=== PATIENT | male | born 1955 | race Hispanic/Latino ===

== ENCOUNTER 2019-12-06 08:00 | Inpatient (IN) | payer OTHER ==
[2019-12-04 10:35] LABS: Hematocrit 38.7 % (35.5-45.6); Hemoglobin 13.4 gm/dl (11.8-15.2); Mean Corpuscular HGB Conc 35 % (32-34); Mean Corpuscular Volume 93 fl (84-94); Platelet Count 374 K/mm3 (140-440); Red Blood Count 4.15 M/mm3 (3.65-5.03); Red Cell Distribution Width 13.4 % (13.2-15.2)
[2019-12-04 10:50] LABS: BUN/Creatinine Ratio 7; Blood Urea Nitrogen 5 mg/dL (9-20); Calcium 9.4 mg/dL (8.4-10.2); Hemolysis Index 30
--- NOTE | 2019-12-04 10:54 | Anesthesia Consultation ---
Anesthesia Consult and Med Hx Date of service: 12/06/19 - Airway Anesthetic Teeth Evaluation: Dentures ROM Head & Neck: Adequate Mental/Hyoid Distance: Adequate Mallampati Class: Class II Intubation Access Assessment: Probably Good - Pulmonary Exam CTA: Yes - Cardiac Exam Cardiac Exam: RRR - Pre-Operative Health Status ASA Pre-Surgery Classification: ASA2 Proposed Anesthetic Plan: General - Pulmonary Hx Smoking: Yes (quit 03/2019) Hx Respiratory Symptoms: No - Cardiovascular System Hx Hypertension: No Hx Heart Attack/AMI: No Hx Percutaneous Transluminal Coronary Angioplasty (PTCA): No Hx Cardia Arrhythmia: No Hx Peripheral Vascular Disease: Yes (w/ B/l LE neuropathy) - Central Nervous System CVA: No - Gastrointestinal Hx Gastroesophageal Reflux Disease: Yes - Endocrine Hx Renal Disease: No Hx Liver Disease: No Hx Insulin Dependent Diabetes: No Hx Non-Insulin Dependent Diabetes: No Hx Thyroid Disease: No - Hematic Hx Anemia: No - Other Systems Hx Obesity: No - Additional Comments Anesthesia Medical History Comments: No prior GA or FHx anesthetic complications. Cardiology evaluation on chart. TTE 11/23/2019: EF 55-60%, no valvulopathy. EKG 11/23/2019: NSR
--- NOTE | 2019-12-06 07:32 | Anesthesia Day of Surgery ---
Anesthesia Day of Surgery - Day of Surgery Patient Examined: Yes Patient H&P Reviewed: Yes Patient is NPO: Yes
[~2019-12-06 08:00] MED LIST: BACTERIOSTATIC SODIUM CHLORIDE 0.9% 30 ML VIAL INFILTRATI ONE; GABAPENTIN 300 MG CAP PO NR; GELATIN SPONGE SIZE 100 TP ONE; HEPARIN 10,000 UNITS/10 ML VIAL ONE; HYDROmorphone 1 MG/1 ML INJ ONE; LACTATED RINGERS 1,000 ML IV SCH; LIDOCAINE (1%) 10 MG/1 ML VIAL 20 ML MDV ONE; LIDOCAINE MPF (2%) 20 MG/1 ML VIAL 5 ML ONE; MIDAZOLAM 2 MG/2 ML INJ IV NR; PROTAMINE SULFATE 50 MG/5 ML INJ ONE; ROCURONIUM 50 MG/5 ML INJ IV ONE; SODIUM CHLORIDE 0.9% 500 ML 500 ML ONE; SUCCINYLCHOLINE CHLORIDE 200 MG/10 ML INJ MDV ONE; THROMBIN (RECOMBINANT) 5,000 UNIT VIAL TP ONE; ceFAZolin/Water 2 GM/20 ML 2 GM/20 ML SYRINGE IV NR; propofoL 200 MG/20 ML VIAL IV ONE
[2019-12-06] MEDS ORDERED: PHENYLEPHRINE/NS 1,000 MCG/10 ML SYRINGE (OR USE) IV ONE (08:44)
[2019-12-06] MEDS ORDERED: HEPARIN 10,000 UNITS/10 ML VIAL IR ONE (09:16)
[2019-12-06] MEDS ORDERED: SODIUM CHLORIDE 0.9% 500 ML IVPB IRRIGATION ONE (09:17)
[2019-12-06] MEDS ORDERED: THROMBIN (RECOMBINANT) 5,000 UNIT VIAL TP ONE (09:18)
[2019-12-06] MEDS ORDERED: SODIUM CHLORIDE 0.9% IRR 1,500 ML BOTTLE IR ONE (09:18)
[2019-12-06] MEDS ORDERED: PHENYLEPHRINE 10 MG/1 ML INJ SDV ONE (09:20)
[2019-12-06] MEDS ORDERED: SODIUM CHLORIDE 0.9% 100 ML ONE (09:20)
[2019-12-06] MEDS ORDERED: HEPARIN 10,000 UNITS/10 ML VIAL ONE (09:27)
[2019-12-06] MEDS ORDERED: NEOSTIGMINE 10MG/10 ML INJ MDV ONE (11:12)
[2019-12-06] MEDS ORDERED: ONDANSETRON 4 MG/2 ML INJ ONE (11:12)
[2019-12-06] MEDS ORDERED: GLYCOPYRROLATE 0.4 MG/2 ML INJ ONE (11:12)
[2019-12-06] MEDS ORDERED: PROTAMINE SULFATE 50 MG/5 ML INJ IV ONE (11:25)
[2019-12-06] MEDS ORDERED: HYDROmorphone 1 MG/1 ML INJ IV PRN (11:29)
[2019-12-06] MEDS ORDERED: ONDANSETRON 4 MG/2 ML INJ IV PRN (11:29)
--- NOTE | 2019-12-06 11:29 | Post Operative Note ---
Date of procedure: 12/06/19 Pre-op diagnosis: Severe Right-sided Carotid Stenosis Post-op diagnosis: same Procedure: Right Carotid Endarterectomy and Patch Angioplasty Anesthesia: GETA Surgeon: JORDYN CASTELAN Estimated blood loss: other (50ml) Condition: stable Disposition: PACU
[2019-12-06] MEDS ORDERED: SODIUM CHLORIDE 0.9% 1000 ML 1,000 ML IV SCH (11:30)
[2019-12-06] MEDS ORDERED: HYDROmorphone 1 MG/1 ML INJ ONE (11:35)
[2019-12-06] MEDS: HYDROmorphone 1 MG/1 ML INJ IV PRN ×4 (11:53→13:58)
[2019-12-06] MEDS ORDERED: DOPamine/D5W 800 MG/250 ML 800 MG/250 ML BAG IV SCH (12:00)
[2019-12-06] MEDS ORDERED: NITROPRUSSIDE 50 MG in DEXTROSE 5% IN WATER 248 ML IV SCH (12:00)
--- NOTE | 2019-12-06 12:42 | Operative Report ---
STAFF SURGEON: Dr. Reji Ramos. PREOPERATIVE DIAGNOSIS: Severe right-sided carotid stenosis. POSTOPERATIVE DIAGNOSIS: Severe right-sided carotid stenosis. PROCEDURE PERFORMED: Right carotid endarterectomy and patch angioplasty with bovine pericardium. COMPLICATIONS: None. ESTIMATED BLOOD LOSS: 50 mL. ANESTHESIA: General. INDICATIONS FOR PROCEDURE: This is a 64-year-old gentleman with multiple medical problems including a significant peripheral vascular disease, who presented to our clinic with severe bilateral lower extremity arterial insufficiency. However, on workup to address his legs, we have an incidental finding of severe stenosis of his right carotid artery. Before addressing any of the other patient's issues, it was felt necessary to address his carotid stenosis. After explaining all the risks, benefits and alternatives of procedure, he expressed understanding and wished to proceed. DESCRIPTION OF PROCEDURE: After appropriate consent was obtained, the patient was brought back to the operating room and placed on the operating table in supine position. The patient was given appropriate medication for general anesthesia, was intubated without difficulty. The right neck and chest were prepped and draped in the usual sterile fashion with ChloraPrep. Appropriate preoperative antibiotics were administered and appropriate time-out performed indicating correct patient, procedure, and site of procedure. We then began the operation by making a longitudinal incision along the anterior border of the sternocleidomastoid muscle. This was carried through the subcutaneous tissue and platysma muscle with electrocautery and blunt dissection. Dissection was continued down on to the internal jugular vein. The facial vein was identified and ligated x 2 with a 2-0 silk suture. The IJ was then able to be retracted posteriorly and dissection was then continued onto the common carotid artery. This was mobilized circumferentially and controlled with umbilical tape and Dylan. Dissection was then continued distally onto the bifurcation and proceeded to expose the internal, external, and superior thyroid arteries, which were all controlled with vessel loops. The vagus and hypoglossal nerve were identified and protected throughout the case. The patient was then given unfractionated heparin intravenously and ACTs were obtained throughout the remainder of the case for adequate anticoagulation. After appropriate timeout elapsed, the vascular clamp was then placed first on the internal carotid artery, then common and external carotid arteries and the superior thyroid vessel was placed on adequate tension. An 11 blade was then used to create an arteriotomy on the common carotid artery, which was then extended onto the internal. After releasing the clamp on the internal carotid artery, there was sufficient enough backbleeding that too was felt not necessary to shunt. The clamp was then placed, then proceeded to perform our endarterectomy with a [place] elevator, started on the common carotid artery, extended on to the external and proceeded to perform eversion endarterectomy of the external and then continued our endarterectomy onto the internal carotid artery, which feathered out nicely. We then proceeded to remove any loose debris with fine mosquito and then the distal flap was then tacked down with interrupted 7-0 Prolene suture. Once complete and satisfied with our endarterectomized surface, we then proceeded to perform a patch angioplasty with a running 6-0 Prolene suture suturing down a bovine pericardial patch. Prior to completion of the anastomosis, we back flushed from the internal and external carotid artery and then forward flushed from the common. This was then flushed with heparinized saline. The anastomosis was then completed. The external carotid artery clamp was removed and then the common carotid artery was then removed. A clamp was then removed for several beats and then the internal carotid artery clamp was removed. We then brought a Doppler on the field, which demonstrated adequate signals in the internal, external, and common carotid arteries. With this, the patient was then given protamine for heparinization reversal. We looked to obtain further hemostasis along the suture line with hemostatic agents. Once we were satisfied with hemostasis, then proceeded to close the wound by approximating the sternocleidomastoid muscle with interrupted 2-0 PDS and the platysma muscle was approximated with a running 3-0 PDS and then the skin was approximated with running 4-0 Monocryl with Dermabond dressing. The patient tolerated the procedure well, emerged from the general anesthesia, was extubated in the operating room, neurologically intact and was sent to recovery in stable condition. All the sponges, instrument and needle counts were correct at completion of the operation. JOB# [id number] DESTINEE/MARK
[2019-12-06] MEDS: fentaNYL 100 MCG/2 ML INJ IV PRN ×2 (16:23→17:05)
--- NOTE | 2019-12-06 18:21 | Post Anesthesia Evaluation ---
- Post Anesthesia Evaluation Patient Participated: Yes Airway Patent: Yes Stable Respiratory Function: Yes Nausea/Vomiting: No Temp > 96.8F: Yes Pain Manageable: Yes Adequeate Hydration: Yes Anesthesia Complications: No Other Comments: Neurologically intact. Briefly on low dose pressors but off ~2hrs prior to transfer to telemetry unit.
[2019-12-06] MEDS: HEPARIN 5,000 UNIT/1 ML VIAL SUB-Q SCH ×2 (20:31→22:37)
[2019-12-06] MEDS: ceFAZolin/NS 1 GM/50 ML 1 GM/50 ML BAG IV SCH ×2 (20:31→22:37)
[2019-12-06] MEDS: DOCUSATE SODIUM 100 MG CAP PO SCH (22:37)
[2019-12-06] MEDS: oxyCODONE /ACETAMINOPHEN 5-325MG TAB PO PRN (23:41)
[2019-12-07] MEDS: HEPARIN 5,000 UNIT/1 ML VIAL SUB-Q SCH ×3 (04:56→14:35)
[2019-12-07] MEDS: ceFAZolin/NS 1 GM/50 ML 1 GM/50 ML BAG IV SCH (04:56)
[2019-12-07] MEDS: oxyCODONE /ACETAMINOPHEN 5-325MG TAB PO PRN ×2 (04:57→14:35)
[2019-12-07] MEDS: DOCUSATE SODIUM 100 MG CAP PO SCH (09:20)
[2019-12-07] MEDS ORDERED: TAMSULOSIN 0.4 MG CAP PO SCH (10:00)
[2019-12-07] MEDS ORDERED: ASPIRIN EC 81 MG TAB PO SCH (10:00)
--- NOTE | 2019-12-07 11:03 | Progress Note ---
Subjective Date of service: 12/07/19 Interval history: s/p Right CEA patient doing well right neck incision c/d/i no hematoma ladle cleaner II-XII intact, motor/sensory grossly intact ok to d/c home today Objective - Constitutional Vitals: Vital Signs - 12hr 12/07/19 12/07/19 12/07/19 00:19 04:28 04:29 Temperature 99.2 F 98.4 F Pulse Rate 67 65 59 L Respiratory 16 16 Rate Blood Pressure 109/54 113/53 O2 Sat by Pulse 92 88 Oximetry 12/07/19 12/07/19 08:37 08:57 Temperature 97.7 F Pulse Rate 60 Respiratory 18 Rate Blood Pressure 113/52 O2 Sat by Pulse 90 90 Oximetry - Labs CBC & Chem 7: 12/04/19 09:45 12/04/19 09:45 Medications & Allergies - Medications Allergies/Adverse Reactions: Allergies No Known Allergies Allergy (Unverified 11/29/19 16:03) Home Medications: Home Medications Medication Instructions Recorded Confirmed Last Taken Type Aspirin [Adult Aspirin] 81 mg PO DAILY 11/29/19 12/06/19 12/04/19 History Active Medications: Generic Name Dose Route Start Last Admin Trade Name Freq PRN Reason Stop Dose Admin Aspirin 81 mg 12/07/19 10:00 12/07/19 09:20 Halfprin Ec PO 81 mg DAILY WILIAM Administration Atorvastatin Calcium 40 mg 12/06/19 22:00 12/06/19 22:37 Lipitor PO 40 mg QHS WILIAM Administration Docusate Sodium 100 mg 12/06/19 22:00 12/07/19 09:20 Colace PO 100 mg BID WILIAM Administration Heparin Sodium (Porcine) 5,000 unit 12/06/19 14:00 12/07/19 05:02 Heparin SUB-Q Not Given Q8HR WILIAM Hydromorphone HCl 0.25 mg 12/06/19 11:29 12/06/19 19:58 Dilaudid IV 0.25 mg Q3H PRN Administration Pain, Moderate (4-6) Sodium Chloride 1,000 mls @ 50 mls/hr 12/06/19 11:30 12/06/19 22:37 Nacl 0.9% 1000 Ml IV 50 mls/hr DIRECT WILIAM Administration Dopamine HCl/Dextrose 800 mg in 250 mls @ 2.551 mls/hr 12/06/19 12:00 12/06/19 15:55 Intropin Drip 800 Mg/D5w 250 Ml IV 0 mcg/kg/min TITR WILIAM 0 mls/hr Titration Protocol 2 MCG/KG/MIN Sodium Nitroprusside 50 mg/ 250 mls @ 5.103 mls/hr 12/06/19 12:00 Dextrose IV TITR WILIAM Protocol 0.25 MCG/KG/MIN Ondansetron HCl 4 mg 12/06/19 11:29 12/06/19 19:59 Zofran IV 4 mg Q8H PRN Administration Nausea And Vomiting Oxycodone/Acetaminophen 1 tab 12/06/19 11:29 12/07/19 04:57 Percocet 5/325 PO 1 tab Q4H PRN Administration Pain, Moderate (4-6) Tamsulosin HCl 0.4 mg 12/07/19 10:00 12/07/19 09:20 Flomax PO 0.4 mg QDAY WILIAM Administration
--- NOTE | 2019-12-07 11:07 | Short Stay Summary ---
Short Stay Documentation Date of service: 12/07/19 - History H&P: obtained from office Past Medical History: CAD, PVD - Allergies and Medications Current Medications: Allergies No Known Allergies Allergy (Unverified 11/29/19 16:03) Home Medications Medication Instructions Recorded Confirmed Last Taken Type Aspirin [Adult Aspirin] 81 mg PO DAILY 11/29/19 12/06/19 12/04/19 History Active Medications Aspirin (Halfprin Ec) 81 mg PO DAILY [facility] Last Admin: 12/07/19 09:20 Dose: 81 mg Documented by: Atorvastatin Calcium (Lipitor) 40 mg PO QHS [facility] Last Admin: 12/06/19 22:37 Dose: 40 mg Documented by: Docusate Sodium (Colace) 100 mg PO BID [facility] Last Admin: 12/07/19 09:20 Dose: 100 mg Documented by: Heparin Sodium (Porcine) (Heparin) 5,000 unit SUB-Q Q8HR [facility] Last Admin: 12/07/19 05:02 Dose: Not Given Documented by: Hydromorphone HCl (Dilaudid) 0.25 mg IV Q3H PRN PRN Reason: Pain, Moderate (4-6) Last Admin: 12/06/19 19:58 Dose: 0.25 mg Documented by: Sodium Chloride (Nacl 0.9% 1000 Ml) 1,000 mls @ 50 mls/hr IV DIRECT [facility] Last Admin: 12/06/19 22:37 Dose: 50 mls/hr Documented by: Dopamine HCl/Dextrose (Intropin Drip 800 Mg/D5w 250 Ml) 800 mg in 250 mls @ 2.551 mls/hr IV TITR WILIAM; Protocol Last Titration: 12/06/19 15:55 Dose: 0 mcg/kg/min, 0 mls/hr Documented by: Sodium Nitroprusside 50 mg/ (Dextrose) 250 mls @ 5.103 mls/hr IV TITR WILIAM; Protocol Ondansetron HCl (Zofran) 4 mg IV Q8H PRN PRN Reason: Nausea And Vomiting Last Admin: 12/06/19 19:59 Dose: 4 mg Documented by: Oxycodone/Acetaminophen (Percocet 5/325) 1 tab PO Q4H PRN PRN Reason: Pain, Moderate (4-6) Last Admin: 12/07/19 04:57 Dose: 1 tab Documented by: Tamsulosin HCl (Flomax) 0.4 mg PO QDAY [facility]ILIAM Last Admin: 12/07/19 09:20 Dose: 0.4 mg Documented by: - Physical exam General appearance: no acute distress HEENT: Atraumatic Lungs: Normal air movement Extremities: no ischemia Neurological: Normal speech, Strength at 5/5 X4 ext, Sensation intact, Cranial nerves 3-12 NL - Hospital course Hospital course: the patient was taken to the operating room and had a right carotid endarterectomy performed. please refer to the operative note concerning details of the procedure. the patient tolerated the procedure well and was sent to the floor for observation. the patient post-op course was unremarkable. he remained neurologically intact and was tolerating a diet at the time of discharge. he was discharged home in stable condition. - Disposition Condition at discharge: Stable Disposition: DC-01 TO HOME OR SELFCARE - Discharge Diagnoses (1) Carotid stenosis, right Status: Acute Short Stay Discharge Plan Follow up with: JORDYN CASTELAN MD [Primary Care Provider] - 7 Days
[2019-12-07 14:41] VITALS: BP 139/58
== END 2019-12-07 16:09 | disposition home or self-care (01) | DRG 27 ==
LOC: 2B-ACE 12:17 → 4A 12:21
PROVIDERS: ADMIT Surgery Vascular Surgery; ATTEND Surgery Vascular Surgery
PROC: 03CH3ZZ Extirpation of Matter from Right Common Carotid Artery, Percutaneous Approach (ICD-10-PCS; principal; 2019-12-06)
PROC: 03UH3KZ Supplement Right Common Carotid Artery with Nonautologous Tissue Substitute, Percutaneous Approach (ICD-10-PCS; 2019-12-06)
DX: I65.21 Occlusion and stenosis of right carotid artery (principal); Z79.899 Other long term (current) drug therapy; Z79.82 Long term (current) use of aspirin; I72.3 Aneurysm of iliac artery; D29.1 Benign neoplasm of prostate
CPT/HCPCS: 36415; 36620; 80048; 85027; 85347; 88304; 88311; 94760; 99406; G0378; A4649; A9270-GY; C1768; J0330; J0690; J1170; J1265; J1644; J2250; J2370; J2405; J2704; J2710; J2720; J3010; J7030; J7040; J7120; U0003

== ENCOUNTER 2020-01-03 09:00 | Inpatient (IN) | payer OTHER ==
[2020-01-01 14:29] LABS: Hematocrit 34.1 % (35.5-45.6); Hemoglobin 11.9 gm/dl (11.8-15.2); Mean Corpuscular HGB Conc 35 % (32-34); Mean Corpuscular Volume 93 fl (84-94); Platelet Count 521 K/mm3 (140-440); Red Blood Count 3.67 M/mm3 (3.65-5.03); Red Cell Distribution Width 13.3 % (13.2-15.2)
[2020-01-01 14:48] LABS: BUN/Creatinine Ratio 7; Blood Urea Nitrogen 5 mg/dL (9-20); Calcium 9.4 mg/dL (8.4-10.2); Hemolysis Index 0
--- NOTE | 2020-01-03 07:39 | Anesthesia Consultation ---
Anesthesia Consult and Med Hx Date of service: 01/03/20 - Airway Anesthetic Teeth Evaluation: Edentulous ROM Head & Neck: Adequate Mental/Hyoid Distance: Adequate Mallampati Class: Class III Intubation Access Assessment: Probably Good (previous easy intubation with MAC 3) - Pre-Operative Health Status ASA Pre-Surgery Classification: ASA3 Proposed Anesthetic Plan: General - Pulmonary Hx Smoking: Yes (quit 03/2019) Hx Respiratory Symptoms: No - Cardiovascular System Hx Hypertension: No Hx Heart Attack/AMI: No Hx Percutaneous Transluminal Coronary Angioplasty (PTCA): No Hx Cardia Arrhythmia: No Hx Peripheral Vascular Disease: Yes - Central Nervous System CVA: No (carotid a. stenosis s/p CEA 11/2019) Hx Psychiatric Problems: No - Gastrointestinal Hx Gastroesophageal Reflux Disease: Yes - Endocrine Hx Renal Disease: No Hx Liver Disease: No Hx Insulin Dependent Diabetes: No Hx Non-Insulin Dependent Diabetes: No Hx Thyroid Disease: No - Hematic Hx Anemia: Yes - Other Systems Hx Obesity: No - Additional Comments Anesthesia Medical History Comments: No hx anesthetic complications.
--- NOTE | 2020-01-03 07:40 | Anesthesia Day of Surgery ---
Anesthesia Day of Surgery - Day of Surgery Patient Examined: Yes Patient H&P Reviewed: Yes Patient is NPO: Yes
--- NOTE | 2020-01-03 07:52 | History and Physical Report ---
History of Present Illness Date of examination: 01/03/20 Chief complaint: Left Lower Extremity Pain History of present illness: 64-year-old gentleman with known peripheral vascular disease presents with a history of worsening bilateral leg pain with ambulation over the past 4 to 5 years. Patient states recently over the past several months his symptoms have progressed to the point rest pain mainly at night while laying flat. Patient is only able to ambulate a few steps without significant symptoms. The patient also states that he has issues with numbness in both feet. The patient up until this point has been managed conservatively with very little relief. The patient has noted injury to the left third toe that has been slow to heal. Patient presents today for attempted intervention for revascularization. The patient denies any recent changes since last evaluated. Past History Past Medical History: hypertension, hyperlipidemia, PVD Social history: smoking Medications and Allergies Allergies Allergy/AdvReac Type Severity Reaction Status Date / Time tramadol Allergy N&V Verified 12/31/19 12:10 Home Medications Medication Instructions Recorded Confirmed Last Taken Type Aspirin [Adult Aspirin] 81 mg PO DAILY 11/29/19 01/03/20 01/02/20 History oxyCODONE /ACETAMINOPHEN [Percocet 1 tab PO Q6HR PRN #24 tablet 12/07/19 01/03/20 12/20/19 Rx 5/325 mg] Active Meds: Active Medications Celecoxib (Celebrex) 200 mg PO PREOP NR Stop: 01/03/20 23:59 Last Admin: 01/03/20 07:06 Dose: 200 mg Documented by: Gabapentin (Gabapentin) 300 mg PO PREOP NR Stop: 01/03/20 23:59 Last Admin: 01/03/20 07:06 Dose: 300 mg Documented by: Hydromorphone HCl (Dilaudid) 0.5 mg IV Q10MIN PRN PRN Reason: Pain , Severe (7-10) Cefazolin Sodium (Ancef/Sterile Water 2 Gm/20 Ml) 2 gm in 20 mls @ 80 mls/hr IV PREOP NR; Protocol Stop: 01/03/20 23:00 Lactated Ringer's (Lactated Ringers) 1,000 mls @ 100 mls/hr IV DIRECT WILIAM Stop: 01/03/20 23:59 Last Admin: 01/03/20 06:55 Dose: 100 mls/hr Documented by: Magnesium Oxide (Mag-Ox) 400 mg PO PREOP WILIAM Stop: 01/03/20 23:59 Last Admin: 01/03/20 07:06 Dose: 400 mg Documented by: Midazolam HCl (Versed) 2 mg IV PREOP NR Stop: 01/03/20 23:59 Last Admin: 01/03/20 07:33 Dose: 2 mg Documented by: Review of Systems All systems: negative Exam - Constitutional Vitals: Temp Pulse Resp BP Pulse Ox 98.2 F 77 20 130/67 100 01/01/20 14:00 01/01/20 14:00 01/01/20 14:00 01/01/20 14:00 01/01/20 14:00 General appearance: Present: no acute distress - Cardiovascular Rhythm: regular - Extremities Extremities: normal temperature, Full ROM Peripheral Pulses: abnormal - Musculoskeletal Musculoskeletal: strength equal bilaterally - Neurologic Neurologic: CNII-XII intact, moves all extremities Results - Labs CBC & Chem 7: 01/01/20 14:00 01/01/20 14:00 Assessment and Plan plan for left femoral remote endarterectomy with angiogram and possible intervention, possible femoral to distal bypass
[~2020-01-03 09:00] MED LIST changes: +CELECOXIB 200 MG CAP PO NR; -LIDOCAINE (1%) 10 MG/1 ML VIAL 20 ML MDV ONE; +LIDOCAINE 1%/EPINEPHRINE 1:100,000 VIAL (20 ML) INFILTRATI ONE; +MAGNESIUM OXIDE 400 MG TAB PO SCH; +PHENYLEPHRINE 10 MG/1 ML INJ SDV ONE; -PROTAMINE SULFATE 50 MG/5 ML INJ ONE; +SODIUM CHLORIDE 0.9% 100 ML ONE; +ePHEDrine SULFATE 50 MG/1 ML INJ ONE
[2020-01-03] MEDS ORDERED: SODIUM CHLORIDE 0.9% 1000 ML 1,000 ML ONE (09:34)
[2020-01-03] MEDS ORDERED: LACTATED RINGERS 1,000 ML ONE (09:34)
[2020-01-03] MEDS ORDERED: HEPARIN 10,000 UNITS/10 ML VIAL IV ONE (10:31)
[2020-01-03] MEDS ORDERED: SODIUM CHLORIDE 0.9% 500 ML IVPB IV ONE (10:32)
[2020-01-03] MEDS ORDERED: THROMBIN (RECOMBINANT) 5,000 UNIT VIAL TP ONE (10:44)
[2020-01-03] MEDS ORDERED: LIDOCAINE 1%/EPINEPHRINE 1:100,000 VIAL (20 ML) IJ ONE (10:44)
[2020-01-03] MEDS ORDERED: HEPARIN 10,000 UNITS/10 ML VIAL ONE ×2 (11:11→12:32)
[2020-01-03] MEDS ORDERED: ROCURONIUM 50 MG/5 ML INJ IV ONE (12:13)
[2020-01-03] MEDS ORDERED: SODIUM CHLORIDE 0.9% 500 ML 500 ML ONE (12:33)
[2020-01-03] MEDS ORDERED: ONDANSETRON 4 MG/2 ML INJ ONE (15:21)
[2020-01-03] MEDS: HYDROmorphone 1 MG/1 ML INJ IV PRN ×3 (15:45→16:33)
[2020-01-03] MEDS ORDERED: NALOXONE 0.4 MG/1 ML INJ IV PRN (16:18)
[2020-01-03] MEDS ORDERED: ONDANSETRON 4 MG/2 ML INJ IV PRN (16:18)
[2020-01-03] MEDS ORDERED: CLOPIDOGREL 300 MG TAB PO ONE (16:24)
[2020-01-03] MEDS ORDERED: SODIUM CHLORIDE 0.9% 1000 ML 1,000 ML IV SCH (16:30)
--- NOTE | 2020-01-03 17:48 | Post Anesthesia Evaluation ---
- Post Anesthesia Evaluation Patient Participated: Yes Airway Patent: Yes Stable Respiratory Function: Yes Nausea/Vomiting: No Temp > 96.8F: Yes Pain Manageable: Yes Adequeate Hydration: Yes Anesthesia Complications: No
--- NOTE | 2020-01-03 18:59 | Post Operative Note ---
Date of procedure: 01/03/20 Pre-op diagnosis: Left Lower Extremity Critical Limb Ischemia Post-op diagnosis: same Findings: Initial angiogram demonstrated flush patent left common femoral and profunda femoral arteries with flush occlusion of the SFA and reconstitution of the distal SFA, 70% stenosis of the P2 segment of the popliteal artery, TP trunk patent, BOAT PILOT of the origin of the AT, origin of the peroneal and PT patent with 1 vessel runoff to the foot via the PT with intact plantar arch. Procedure: 1. Left Common Femoral Antegrade Access 2. Left Lower Extremity Angiogram with 2nd Order Catheter Placement 3. Left SFA Remote Endarterectomy and Patch Angioplasty 4. Left Popliteal Artery Angioplasty 5. Left SFA Angioplasty and Stent Placement 6. Left Posterior Tibial Artery Retrograde Access Anesthesia: GETA Surgeon: JORDYN CASTELAN Estimated blood loss: other (350ml) Pathology: none Condition: stable Disposition: PACU
[2020-01-03] MEDS: ceFAZolin/NS 1 GM/50 ML 1 GM/50 ML BAG IV SCH (19:26)
[2020-01-03] MEDS: HYDROmorphone 1 MG/1 ML INJ IM PRN (20:21)
--- NOTE | 2020-01-03 21:17 | Operative Report ---
STAFF SURGEON: Dr. Reji Ramos. PREOPERATIVE DIAGNOSIS: Left lower extremity critical limb ischemia. POSTOPERATIVE DIAGNOSIS: Left lower extremity critical limb ischemia. PROCEDURES PERFORMED: 1. Left common femoral antegrade access. 2. Left lower extremity diagnostic angiogram with second order catheter placement. 3. Left superficial femoral artery, remote endarterectomy and patch angioplasty. 4. Left popliteal artery angioplasty. 5. Left SFA angioplasty and stent placement. 6. Left posterior tibial artery retrograde access. COMPLICATIONS: None. ESTIMATED BLOOD LOSS: 350 mL. ANESTHESIA: General. INDICATIONS FOR PROCEDURE: This is a 64-year-old gentleman with known severe peripheral vascular disease, who has been having issues with rest pain of both lower extremities with some evidence of tissue loss in the left foot, who had noninvasive studies and that were concerning for a significant arterial insufficiency in both legs. The patient initially underwent an attempted revascularization of the left lower extremity endovascularly which was unsuccessful. At much discussion with the patient, it was felt that the patient may benefit from attempted remote endarterectomy intervention for revascularization. The patient was explained the risks, benefits and alternatives of procedure, expressed understanding and wished to proceed. DESCRIPTION OF PROCEDURE: After appropriate consent was obtained, the patient was brought back to the operating room and placed on table in supine position. The patient was given appropriate medication for general anesthesia, was intubated without difficulty. The left lower extremity was prepped and draped in usual sterile fashion with ChloraPrep. Appropriate preoperative antibiotics were administered. Appropriate timeout was performed indicating correct patient, procedure, and site of procedure. We then began the operation by making a longitudinal incision approximately 2 fingerbreadths lateral to the pubic tubercle. This was carried through subcutaneous tissue with a combination of blunt dissection and electrocautery. Self-retaining retractors were placed. Dissection was continued through the fascia antonella, which allowed to expose the common femoral artery, which was exposed at the level of the inguinal ligament. Dissection was continued distally to expose the SFA and profunda, control of the vessels were obtained with vessel loops in a Tay wrap fashion. The patient was given unfractionated heparin intravenously and ACTs were obtained throughout the remainder of the case for adequate anticoagulation. After appropriate timeout elapsed, we then proceeded to obtain access of the common femoral artery through a counter punctured proximal to the incision using a micropuncture needle just below the inguinal ligament. Once we obtained access, needle was exchanged for a micropuncture sheath using Seldinger technique, then proceeded to place a stiff J wire through the micropuncture sheath. The sheath was removed and then a 6-Monegasque sheath was placed over the J wire into the femoral artery. Then, a series of diagnostic imaging of the left lower extremity were performed, which demonstrated the findings noted above. With this, we then proceeded to place vascular clamps on the common and profunda femoral arteries. A longitudinal arteriotomy was then made on the distal common and extended onto the SFA with an 11 blade and was enlarged with Tay scissors. We then proceeded to take a [place] elevator and started on the common and proceeded to perform our endarterectomy of the origin of the SFA. This was then transected with Tay scissors at the level of the SFA origin. Then, using ____ #7 device, remote endarterectomy device was then fed through the loop and proceeded to proceed with remote endarterectomy of the left superficial femoral artery. The implant had been previously marked on the screen. Once we reached an endpoint, then proceeded to amputate the specimen and then this was teased out, which was removed in its entirety. The specimen was discarded. We then proceeded to patch the opening with bovine pericardium with a running 6-0 Prolene suture. It should be noted there was adequate back bleeding once the specimen was removed. Prior to completing the anastomosis, we flushed both from the SFA, profunda and then common, flushed with heparinized saline, then completed the anastomosis and the clamp was then removed off the profunda first and then common for several beats and then the SFA clamp was removed. I then through our previously accessed vessel with a 6-Monegasque sheath in the common, this was then readjusted from the profunda into the SFA using a Glidewire and angled catheter. Once the sheath was placed into the SFA, then, a combination of a Glidewire and angled catheter were advanced distally in an attempt to cross pass amputated level of the specimen; however, it was noted that multiple attempts, multiple catheters and wires were unable to reenter the true lumen in the distal SFA and popliteal artery and such. Then, attempts were then made to obtain pedal access in the posterior tibial artery. Initially, this was unsuccessful and so an attempt was then made by placing the vascular clamps back on the common and profunda femoral artery. A longitudinal incision was made on the patch and a second device ____ that would allow us to poke through the distal flap and place a wire was then placed distally in the ____ device. This was unsuccessful and was unable to again reaching the true lumen. This was removed. A second attempt was then made to obtain pedal access in the posterior tibial artery in a retrograde fashion, which was successful at this time using micropuncture technique under ultrasound guidance. Once we obtained access, the needle was exchanged for a micropuncture sheath using Seldinger technique. Through the MicroSheath, was then able to pass a Glidewire from the pedal access up to the level of the common femoral, which was brought through the patch in the body floss fashion. Once this was then removed, then, a Quick-Cross catheter was then placed over the Glidewire in an antegrade fashion into the posterior tibial artery. Once that was performed, imaging through the catheter was performed demonstrating we were within the true lumen and then proceeded to place a 0.014 wire into the posterior tibial artery. The catheter was removed. A new 6-Monegasque sheath was placed over the wire into the SFA. I then proceeded to take a 5 x 100 balloon and proceeded to balloon angioplasty the popliteal artery and it was held for approximately 2 minutes. Once complete, then a 5 x 150 mm drug-coated balloon was then placed over the wire into the lesion in the popliteal artery again, balloon angioplasty was performed and held for approximately 3 minutes. A diagnostic imaging was performed through the sheath demonstrated less than 10% residual stenosis in the popliteal artery lesion. The level of the distal flap in the SFA was noted as well as proximally on the screen. Then, a 6 mm x 25 cm Viabahn stent was placed to the level of the distal SFA just pass the distal flap and deployed pass the proximal flap. Once complete, then a 6 x 220 mm balloon was placed on the field and proceeded to balloon angioplasty of the Viabahn stent. Once complete, a completion angiogram was performed, which demonstrated less than 10% residual stenosis and a widely patent SFA and popliteal artery with intact runoff to the foot as noted above. I then proceeded to remove all our wires and catheters. Vascular clamps were placed on the common SFA and profunda femoral arteries. The patch that was initially placed was removed in its entirety and replaced with a new patch with a running 6-0 Prolene suture. Once that was complete, flow was again reestablished from the common into the profunda for several beats and then down the SFA. I then proceeded to remove the MicroSheath out of the posterior tibial artery and digital compression was held at the access site for hemostasis. We then looked to obtain hemostasis in the groin along the suture line with hemostatic agents. Once we were satisfied with hemostasis, appropriate dressing was placed on the posterior tibial artery access and then the groin incision was closed in multiple layers with 2-0 and 3-0 PDS. The skin was approximated with katya. Appropriate dressing was placed. The patient tolerated the procedure well, emerged from the general anesthesia, was extubated in the operating room and sent to recovery in stable condition. All the sponges, instrument and needle counts were correct at completion of the operation. JOB# [id number] DESTINEE/MARK
[2020-01-03] MEDS: oxyCODONE /ACETAMINOPHEN 5-325MG TAB PO PRN (22:45)
[2020-01-04] MEDS: HYDROmorphone 1 MG/1 ML INJ IM PRN ×3 (00:47→16:33)
[2020-01-04] MEDS: ceFAZolin/NS 1 GM/50 ML 1 GM/50 ML BAG IV SCH (00:50)
[2020-01-04 05:57] LABS: Hematocrit 26.4 % (35.5-45.6); Hemoglobin 8.9 gm/dl (11.8-15.2)
[2020-01-04 06:14] LABS: BUN/Creatinine Ratio 10; Blood Urea Nitrogen 7 mg/dL (9-20); Calcium 7.8 mg/dL (8.4-10.2); Hemolysis Index 13
[2020-01-04] MEDS: CLOPIDOGREL 75 MG TAB PO SCH (11:18)
[2020-01-04] MEDS: oxyCODONE /ACETAMINOPHEN 5-325MG TAB PO PRN (11:19)
[2020-01-04] MEDS: ASPIRIN EC 81 MG TAB PO SCH (11:19)
--- NOTE | 2020-01-04 11:50 | Progress Note ---
Assessment and Plan Postoperative day #1 status post left common femoral patch angioplasty with left SFA removal endarterectomy and popliteal artery angioplasty. The patient is doing well with some complaints of incisional pain that are well within normal limits. He tolerated ambulation with physical therapy using a rolling walker. He is progressing along the normal course. Anticipate that he will be ready for discharge within the next couple of days however he should stay in the hospital until his pain is better controlled because he lives alone. I have encouraged him to use the oral narcotics for pain control as they last longer than the IV narcotics. The patient expressed understanding of the hospital course plan and agrees. Subjective Date of service: 01/04/20 Principal diagnosis: Peripheral vascular disease Interval history: Postoperative day #1 status post left SFA remote endarterectomy with popliteal artery angioplasty and common femoral artery patch angioplasty. The patient complains of left incisional groin pain however he has no additional complaints. He does state he has some tingling in the foot which is different than prior to surgery when he had no sensation in the foot secondary to ischemic neuropathy. He ambulated with physical therapy using a rolling walker which he tolerated well. Objective - Constitutional Vitals: Vital Signs - 12hr 01/03/20 01/04/20 01/04/20 23:57 01:55 05:06 Temperature 97.9 F 97.7 F Pulse Rate 64 57 L 58 L Respiratory 18 20 Rate Blood Pressure 118/59 Blood Pressure 104/48 [Right] O2 Sat by Pulse 100 100 Oximetry 01/04/20 01/04/20 01/04/20 07:54 08:53 11:19 Temperature 97.8 F Pulse Rate Respiratory 18 20 Rate Blood Pressure 103/45 Blood Pressure [Right] O2 Sat by Pulse 95 Oximetry General appearance: Present: no acute distress - Respiratory Respiratory effort: normal - Cardiovascular Rhythm: regular Extremities: pulses intact (Patient has left monophasic dorsalis pedis and posterior tibial signals), normal temperature (Left foot), abnormal (Left groin wound dressing with scant serosanguineous drainage without evidence of hematoma. Left posterior tibial retrograde access site is clean dry and intact.) Extremity abnormal: tenderness (Left groin and left pedal retrograde access site) - Gastrointestinal General gastrointestinal: Present: soft, non-tender - Genitourinary Male genitourinary: normal (No evidence of scrotal edema or hemorrhage) - Labs CBC & Chem 7: 01/04/20 04:30 01/04/20 04:30 Labs: Abnormal lab results 01/04/20 01/04/20 Range/Units 04:30 04:30 Hgb 8.9 L D (11.8-15.2) gm/dl Hct 26.4 L D (35.5-45.6) % BUN 7 L (9-20) mg/dL Creatinine 0.7 L (0.8-1.5) mg/dL Glucose 110 H (75-100) mg/dL Calcium 7.8 L D (8.4-10.2) mg/dL Medications & Allergies - Medications Allergies/Adverse Reactions: Allergies tramadol Allergy (Verified 12/31/19 12:10) N&V Home Medications: Home Medications Medication Instructions Recorded Confirmed Last Taken Type Aspirin [Adult Aspirin] 81 mg PO DAILY 11/29/19 01/03/20 01/02/20 History oxyCODONE /ACETAMINOPHEN [Percocet 1 tab PO Q6HR PRN #24 tablet 12/07/19 01/03/20 12/20/19 Rx 5/325 mg] Active Medications: Generic Name Dose Route Start Last Admin Trade Name Freq PRN Reason Stop Dose Admin Aspirin 81 mg 01/04/20 10:00 01/04/20 11:19 Halfprin Ec PO 81 mg QDAY WILIAM Administration Clopidogrel Bisulfate 75 mg 01/04/20 10:00 01/04/20 11:18 Plavix PO 75 mg QDAY WILIAM Administration Hydromorphone HCl 0.5 mg 01/03/20 16:22 01/04/20 05:17 Dilaudid IM 0.5 mg Q4H PRN Administration Pain , Severe (7-10) Sodium Chloride 1,000 mls @ 75 mls/hr 01/03/20 16:30 Nacl 0.9% 1000 Ml IV DIRECT WILIAM Naloxone HCl 0.1 mg 01/03/20 16:18 Naloxone IV Q2MIN PRN Res Rate </= 8 or 02 SAT < 92% Ondansetron HCl 4 mg 01/03/20 16:18 Zofran IV Q8H PRN Nausea And Vomiting Oxycodone/Acetaminophen 2 tab 01/03/20 16:18 01/04/20 11:19 Percocet 5/325 PO 2 tab Q4H PRN Administration Pain, Moderate (4-6)
[2020-01-04] MEDS: DOCUSATE SODIUM 100 MG CAP PO SCH (21:33)
[2020-01-04] MEDS: oxyCODONE 5 MG TAB PO SCH (21:35)
[2020-01-04] MEDS: SENNOSIDES 8.6 MG TAB PO SCH (21:36)
[2020-01-05] MEDS: HYDROmorphone 1 MG/1 ML INJ IV PRN ×2 (00:59→06:29)
[2020-01-05] MEDS: oxyCODONE /ACETAMINOPHEN 5-325MG TAB PO PRN ×2 (08:25→17:37)
[2020-01-05] MEDS: oxyCODONE 5 MG TAB PO SCH ×2 (10:38→21:32)
[2020-01-05] MEDS: ASPIRIN EC 81 MG TAB PO SCH (10:38)
[2020-01-05] MEDS: DOCUSATE SODIUM 100 MG CAP PO SCH ×2 (10:39→21:32)
[2020-01-05] MEDS: CLOPIDOGREL 75 MG TAB PO SCH (10:39)
--- NOTE | 2020-01-05 14:12 | Progress Note ---
Assessment and Plan 64-year-old male status post left groin remote endarterectomy with Viabahn stent grafting with left common femoral artery patch angioplasty. Dual antiplatelet therapy with aspirin and Plavix. Explained importance to patient. Patient reports that he "does not want to thin his blood too much" and has only intermittently been taking his aspirin. Explained that noncompliance with his medication places him at high risk for limb loss due to stent thrombosis. Nonpalpable pedal pulses with reassuring warmth of the left lower extremity with symptom improvement. I will obtain an arterial Doppler in order to obtain a new baseline, and CARL/PVR/PPG. Given wounds of his left toes, he may end up needing further outpatient endovascular revascularization to improve his left lower extremity runoff. Discussed with patient that Dr. Ramos will follow up with him for the ultimate plan in clinic based on how he clinically responds to SFA rev ascularization. Pain is improving. Will discontinue IV Dilaudid. Scheduled patient on 10 mg of oxycodone twice a day with Percocet breakthrough medicine as needed. Subjective Date of service: 01/05/20 Principal diagnosis: Peripheral vascular disease Interval history: Postoperative day #2. Status post left SFA remote endarterectomy with popliteal artery angioplasty and common femoral artery patch angioplasty. The patient continues to complains of left incisional groin pain, but it is improving. He reports neuropathy in the left 3rd, 4th, and 5th digit which is similar, but does notice improvement with weight bearing which no longer produces severe left foot pain. He ambulated with physical therapy using a rolling walker which he tolerated well. Incisions of the left groin with staple line are clean, dry, and intact. No hematoma. Removed left posterior tibial artery dressing. Nonpalpable pedal pulses bilaterally. Both feet are warm. No evidence of ischemia. Objective - Constitutional Vitals: Vital Signs - 12hr 01/05/20 01/05/20 01/05/20 04:20 08:00 08:39 Temperature 98.0 F 97.9 F Pulse Rate 73 68 78 Respiratory 18 18 Rate Blood Pressure 121/57 104/48 O2 Sat by Pulse 96 97 Oximetry 01/05/20 10:00 Temperature Pulse Rate Respiratory Rate Blood Pressure O2 Sat by Pulse 97 Oximetry General appearance: Present: no acute distress - EENT Eyes: EOM intact ENT: hearing intact - Respiratory Respiratory effort: normal Extremities: abnormal (see subjective) - Gastrointestinal General gastrointestinal: Present: soft, non-tender - Psychiatric Psychiatric: appropriate mood/affect, cooperative - Labs CBC & Chem 7: 01/04/20 04:30 01/04/20 04:30 Medications & Allergies - Medications Allergies/Adverse Reactions: Allergies tramadol Allergy (Verified 12/31/19 12:10) N&V Home Medications: Home Medications Medication Instructions Recorded Confirmed Last Taken Type Aspirin [Adult Aspirin] 81 mg PO DAILY 11/29/19 01/03/20 01/02/20 History oxyCODONE /ACETAMINOPHEN [Percocet 1 tab PO Q6HR PRN #24 tablet 12/07/19 01/03/20 12/20/19 Rx 5/325 mg] Active Medications: Generic Name Dose Route Start Last Admin Trade Name Freq PRN Reason Stop Dose Admin Aspirin 81 mg 01/04/20 10:00 01/05/20 10:38 Halfprin Ec PO 81 mg QDAY WILIAM Administration Clopidogrel Bisulfate 75 mg 01/04/20 10:00 01/05/20 10:39 Plavix PO 75 mg QDAY WILIAM Administration Docusate Sodium 100 mg 01/04/20 22:00 01/05/20 10:39 Colace PO 100 mg BID WILIAM Administration Hydromorphone HCl 0.5 mg 01/04/20 21:19 01/05/20 06:29 Dilaudid IV 0.5 mg Q2H PRN Administration Pain , Severe (7-10) Naloxone HCl 0.1 mg 01/03/20 16:18 Naloxone IV Q2MIN PRN Res Rate </= 8 or 02 SAT < 92% Ondansetron HCl 4 mg 01/03/20 16:18 Zofran IV Q8H PRN Nausea And Vomiting Oxycodone HCl 10 mg 01/04/20 22:00 01/05/20 10:38 Roxicodone PO 10 mg BID WILIAM Administration Oxycodone/Acetaminophen 2 tab 01/03/20 16:18 01/05/20 08:25 Percocet 5/325 PO 2 tab Q4H PRN Administration Pain, Moderate (4-6) Senna 17.2 mg 01/04/20 22:00 01/04/20 21:36 Senokot PO 17.2 mg QHS WILIAM Administration
[2020-01-05] MEDS: SENNOSIDES 8.6 MG TAB PO SCH (21:33)
[2020-01-06] MEDS: oxyCODONE /ACETAMINOPHEN 5-325MG TAB PO PRN ×3 (03:25→17:01)
[2020-01-06] MEDS: DOCUSATE SODIUM 100 MG CAP PO SCH ×2 (09:41→22:26)
[2020-01-06] MEDS: ASPIRIN EC 81 MG TAB PO SCH (09:41)
[2020-01-06] MEDS: oxyCODONE 5 MG TAB PO SCH ×2 (09:41→22:26)
[2020-01-06] MEDS: CLOPIDOGREL 75 MG TAB PO SCH (09:41)
--- NOTE | 2020-01-06 15:10 | Progress Note ---
Assessment and Plan 64-year-old male status post left groin remote endarterectomy with Viabahn stent grafting with left common femoral artery patch angioplasty. Dual antiplatelet therapy with aspirin and Plavix. Nonpalpable pedal pulses. Still has persistent pain of the lower extremities. Scheduled patient on 10 mg of oxycodone twice a day with Percocet breakthrough medicine as needed. I decreased his pain medication from yesterday and he complains of more pain today, so I increased his percocet breakthrough from 5/325 to 10/650 q4h. Awaiting arterial doppler and CARL/PVR/PPG. Started Pletal in the interim. Subjective Date of service: 01/06/20 Principal diagnosis: Peripheral vascular disease Interval history: Postoperative day #3. Status post left SFA remote endarterectomy with popliteal artery angioplasty and common femoral artery patch angioplasty. The patient continues to complains of left incisional groin pain. He reports neuropathy in the left 3rd, 4th, and 5th digit which is similar. Has lower extremity pain, slightly worse today but pain medication has been decreased since yesterday. He complains of pain in both lower extremities. Incisions of the left groin with staple line are clean, dry, and intact. No hematoma. Monophasic signals from the DP and PT. Nonpalpable pedal pulses bilaterally. Both feet are warm. Intact motor function. No worsening of baseline neuropathy. Objective - Constitutional Vitals: Vital Signs - 12hr 01/06/20 01/06/20 01/06/20 04:09 08:00 12:36 Temperature 98.0 F Pulse Rate 73 63 68 Respiratory 18 18 Rate Blood Pressure 140/64 Blood Pressure 107/56 [Right] O2 Sat by Pulse 97 99 Oximetry General appearance: Present: mild distress (pain from bilateral lower extrem ities) - EENT Eyes: EOM intact ENT: hearing intact - Respiratory Respiratory effort: normal Extremities: abnormal (see subjective) - Psychiatric Psychiatric: appropriate mood/affect, cooperative - Labs CBC & Chem 7: 01/04/20 04:30 01/04/20 04:30 Medications & Allergies - Medications Allergies/Adverse Reactions: Allergies tramadol Allergy (Verified 12/31/19 12:10) N&V Home Medications: Home Medications Medication Instructions Recorded Confirmed Last Taken Type Aspirin [Adult Aspirin] 81 mg PO DAILY 11/29/19 01/03/20 01/02/20 History oxyCODONE /ACETAMINOPHEN [Percocet 1 tab PO Q6HR PRN #24 tablet 12/07/19 01/03/20 12/20/19 Rx 5/325 mg] Active Medications: Generic Name Dose Route Start Last Admin Trade Name Freq PRN Reason Stop Dose Admin Aspirin 81 mg 01/04/20 10:00 01/06/20 09:41 Halfprin Ec PO 81 mg QDAY WILIAM Administration Clopidogrel Bisulfate 75 mg 01/04/20 10:00 01/06/20 09:41 Plavix PO 75 mg QDAY WILIAM Administration Docusate Sodium 100 mg 01/04/20 22:00 01/06/20 09:41 Colace PO 100 mg BID WILIAM Administration Naloxone HCl 0.1 mg 01/03/20 16:18 Naloxone IV Q2MIN PRN Res Rate </= 8 or 02 SAT < 92% Ondansetron HCl 4 mg 01/03/20 16:18 Zofran IV Q8H PRN Nausea And Vomiting Oxycodone HCl 10 mg 01/04/20 22:00 01/06/20 09:41 Roxicodone PO 10 mg BID WILIAM Administration Oxycodone/Acetaminophen 1 tab 01/05/20 14:49 01/06/20 11:42 Percocet 5/325 PO 1 tab Q4H PRN Administration Pain, Moderate (4-6) Senna 17.2 mg 01/04/20 22:00 01/05/20 21:33 Senokot PO 17.2 mg QHS WILIAM Administration
[2020-01-06] MEDS: CILOSTAZOL 100 MG TAB PO SCH ×2 (16:51→22:26)
[2020-01-06] MEDS: SENNOSIDES 8.6 MG TAB PO SCH (22:25)
[2020-01-07] MEDS: oxyCODONE /ACETAMINOPHEN 5-325MG TAB PO PRN (02:31)
[2020-01-07] MEDS: ASPIRIN EC 81 MG TAB PO SCH (11:37)
[2020-01-07] MEDS: CILOSTAZOL 100 MG TAB PO SCH (11:37)
[2020-01-07] MEDS: oxyCODONE 5 MG TAB PO SCH (11:37)
[2020-01-07] MEDS: DOCUSATE SODIUM 100 MG CAP PO SCH (11:37)
[2020-01-07] MEDS: CLOPIDOGREL 75 MG TAB PO SCH (11:37)
--- NOTE | 2020-01-07 12:08 | Vascular Lab Report ---
DUPLEX DOPPLER LOWER EXTREMITY ARTERIAL, BILATERAL INDICATION: Bilateral lower extremity pain. History of peripheral artery disease. TECHNIQUE: Arterial duplex examination of both lower extremities performed using B-mode, color flow and spectral Doppler assessment. FINDINGS: RIGHT: Common Femoral Artery: PSV 116 cm/sec. Triphasic waveform. Proximal SFA: Occluded. Mid SFA: PSV 47 cm/sec. Monophasic waveform. Distal SFA: PSV 30 cm/sec. Monophasic waveform. Popliteal artery: PSV 32 cm/sec. Monophasic waveform. Posterior tibial artery: PSV 10 cm/sec. Biphasic waveform. Dorsalis Pedis Artery: PSV 12 cm/sec. Biphasic waveform. LEFT: Common Femoral Artery: PSV 175 cm/sec. Biphasic waveform. Proximal SFA: Occluded. Mid SFA: Occluded. Distal SFA: Occluded. Popliteal artery: PSV 22 cm/sec. Biphasic waveform. Posterior tibial artery: PSV 17 cm/sec. Monophasic waveform. Dorsalis Pedis Artery: PSV 8 cm/sec. Monophasic waveform. Right CARL: Not measured. Left CARL: Not measured. IMPRESSION: Severe bilateral lower extremity peripheral artery disease with occlusion of the superficial femoral arteries and diminished, abnormal flow in the distal arteries bilaterally as above. The instrument technologist provided a verbal report to Dr. Miller via telephone at 11:45 [facility] time. Signer Name: Aayush Asif MD Signed: 01/07/2020 12:03 PM Workstation Name: [id number]
[2020-01-07] MEDS: PANTOPRAZOLE 40 MG TAB PO SCH (12:43)
[2020-01-07 13:16] LABS: INR 1.01 (0.87-1.13)
[2020-01-07 13:17] LABS: Partial Thromboplastin Time 33.5 Sec. (24.2-36.6)
[2020-01-07] MEDS: HEPARIN/ 0.45% NACL DRIP 25,000 UNIT/500 ML BAG IV SCH ×2 (13:34→21:55)
[2020-01-07 14:55] LABS: Hematocrit 25.2 % (35.5-45.6); Hemoglobin 8.6 gm/dl (11.8-15.2); Mean Corpuscular HGB Conc 34 % (32-34); Mean Corpuscular Volume 94 fl (84-94); Platelet Count 385 K/mm3 (140-440); Red Blood Count 2.69 M/mm3 (3.65-5.03); Red Cell Distribution Width 13.9 % (13.2-15.2)
[2020-01-07] MEDS ORDERED: LACTATED RINGERS 1,000 ML ONE (15:03)
[2020-01-07] MEDS ORDERED: fentaNYL 100 MCG/2 ML INJ IV PRN (15:11)
--- NOTE | 2020-01-07 15:11 | Anesthesia Consultation ---
Anesthesia Consult and Med Hx - Airway Anesthetic Teeth Evaluation: Edentulous ROM Head & Neck: Adequate Mental/Hyoid Distance: Adequate Mallampati Class: Class II Intubation Access Assessment: Probably Good (previous easy intubation) - Pulmonary Exam CTA: Yes - Cardiac Exam Cardiac Exam: RRR - Pre-Operative Health Status ASA Pre-Surgery Classification: ASA3, Emergency Proposed Anesthetic Plan: General - Pulmonary Hx Smoking: Yes (quit 03/2019) Hx Respiratory Symptoms: No - Cardiovascular System Hx Hypertension: No Hx Heart Attack/AMI: No Hx Percutaneous Transluminal Coronary Angioplasty (PTCA): No Hx Cardia Arrhythmia: No Hx Peripheral Vascular Disease: Yes (s/p fem-distal bypass 01/03/2020) - Central Nervous System CVA: No (carotid a. stenosis s/p CEA 11/2019) Hx Psychiatric Problems: No - Gastrointestinal Hx Gastroesophageal Reflux Disease: Yes - Endocrine Hx Renal Disease: No Hx Liver Disease: No Hx Insulin Dependent Diabetes: No Hx Non-Insulin Dependent Diabetes: No Hx Thyroid Disease: No - Hematic Hx Anemia: Yes - Other Systems Hx Obesity: No - Additional Comments Anesthesia Medical History Comments: No hx anesthetic complications. Evidence on ongoing LLE ischemia now scheduled for urgent revascularization.
--- NOTE | 2020-01-07 15:11 | Anesthesia Day of Surgery ---
Anesthesia Day of Surgery - Day of Surgery Patient Examined: Yes Patient H&P Reviewed: Yes Patient is NPO: No (full breakfast 0900)
[2020-01-07] MEDS: LACTATED RINGERS 1,000 ML IV SCH (15:15)
[2020-01-07 15:16] LABS: BUN/Creatinine Ratio 16; Blood Urea Nitrogen 8 mg/dL (9-20); Calcium 8.7 mg/dL (8.4-10.2); Hemolysis Index 3
[2020-01-07] MEDS ORDERED: SODIUM CHLORIDE 0.9% 250ML 250 ML ONE (15:21)
[2020-01-07] MEDS ORDERED: PROTAMINE SULFATE 50 MG/5 ML INJ ONE (15:21)
[2020-01-07] MEDS ORDERED: HEPARIN 10,000 UNITS/10 ML VIAL ONE ×3 (15:21→17:59)
[2020-01-07] MEDS ORDERED: SODIUM CHLORIDE 0.9% 500 ML 500 ML ONE (15:21)
[2020-01-07] MEDS ORDERED: ROCURONIUM 50 MG/5 ML INJ IV ONE (15:33)
[2020-01-07] MEDS ORDERED: MIDAZOLAM 2 MG/2 ML INJ ONE (15:33)
[2020-01-07] MEDS ORDERED: propofoL 200 MG/20 ML VIAL IV ONE (15:34)
[2020-01-07] MEDS ORDERED: fentaNYL 100 MCG/2 ML INJ ONE (15:34)
[2020-01-07] MEDS ORDERED: LIDOCAINE MPF (2%) 20 MG/1 ML VIAL 5 ML ONE (15:38)
[2020-01-07] MEDS ORDERED: ONDANSETRON 4 MG/2 ML INJ ONE (15:38)
[2020-01-07] MEDS ORDERED: SODIUM CHLORIDE 0.9% 500 ML 500 ML IV SCH (15:45)
[2020-01-07] MEDS ORDERED: MIDAZOLAM 2 MG/2 ML INJ IV NR (16:00)
[2020-01-07] MEDS ORDERED: ceFAZolin/STERILE WATER 2 GM/20 ML SYRINGE IV NR (16:00)
[2020-01-07] MEDS ORDERED: SODIUM CHLORIDE 0.9% 500 ML IVPB IRRIGATION ONE ×2 (16:48)
[2020-01-07] MEDS ORDERED: HEPARIN 10,000 UNITS/10 ML VIAL IR ONE ×2 (16:48)
[2020-01-07] MEDS ORDERED: SODIUM CHLORIDE 0.9% IRR 1,500 ML BOTTLE IR ONE ×2 (17:11→19:18)
[2020-01-07] MEDS ORDERED: SODIUM CHLORIDE 0.9% 100 ML ONE (17:32)
[2020-01-07] MEDS ORDERED: dexAMETHasone 20 MG/5 ML VIAL ONE (17:32)
[2020-01-07] MEDS ORDERED: PHENYLEPHRINE 10 MG/1 ML INJ SDV ONE (17:32)
[2020-01-07] MEDS ORDERED: PHENYLEPHRINE/NS 1,000 MCG/10 ML SYRINGE (OR USE) IV ONE (17:32)
[2020-01-07] MEDS ORDERED: METOCLOPRAMIDE 10 MG/2 ML INJ ONE (17:33)
[2020-01-07] MEDS ORDERED: NEOSTIGMINE 10MG/10 ML INJ MDV ONE (18:56)
[2020-01-07] MEDS ORDERED: GLYCOPYRROLATE 0.4 MG/2 ML INJ ONE (18:56)
[2020-01-07] MEDS ORDERED: GELATIN SPONGE SIZE 100 TP ONE ×2 (19:00→19:17)
[2020-01-07] MEDS ORDERED: THROMBIN (RECOMBINANT) 5,000 UNIT VIAL TP ONE ×2 (19:00→19:17)
[2020-01-07] MEDS ORDERED: HYDROmorphone 1 MG/1 ML INJ ONE (19:04)
[2020-01-07] MEDS ORDERED: SODIUM CHLORIDE 0.9% 1000 ML 1,000 ML ONE (19:11)
[2020-01-07] MEDS ORDERED: PROTAMINE SULFATE 50 MG/5 ML INJ IV ONE (19:18)
--- NOTE | 2020-01-07 19:44 | Vascular Lab Report ---
Bilateral CARL. HISTORY: Peripheral vascular disease. Right CARL is normal at 0.96. Left CARL of is markedly abnormal at 0.41 Signer Name: Javon Brown MD Signed: 01/07/2020 7:40 PM Workstation Name: [id number]
--- NOTE | 2020-01-07 19:56 | Post Operative Note ---
Date of procedure: 01/07/20 Pre-op diagnosis: Left Lower Extremity Critical Limb Ischemia Post-op diagnosis: same Findings: Aorto-iliac patent bilaterally, Right Common Iliac Aneurysm noted, Right CLASSIFICATION CASE MANAGER and profunda femoral patent, flow limiting dissection flap noted in the proximal SFA , stented portion of the SFA patent, popliteal artery patent BROACHER of the proximal AT, PT and peroneal artery patent with 1 vessel runoff to the foot Procedure: 1. Left Lower Extremity Femoral-Popliteal Thrombectomy 2. Ultrasound Retrograde Access of Right Common Femoral Artery 3. Diagnostic Aortogram 4. Left Lower Extremity Diagnostic Angiogram with 2nd Order Catheter Placement 5. Left SFA Angioplasty and Stent Placement Anesthesia: LUCY Surgeon: JORDYN CASTELAN Estimated blood loss: other (100ml) Pathology: none Condition: stable Disposition: PACU
[2020-01-07] MEDS: HYDROmorphone 1 MG/1 ML INJ IV PRN ×2 (20:00→20:30)
--- NOTE | 2020-01-07 20:00 | XRay Report ---
XR femur 1V LT INDICATION / CLINICAL INFORMATION: LEFT FEMUR THROMBECTOMY. COMPARISON: None available. FINDINGS: Thrombectomy. Fluoroscopy time: 10.9 minutes. Fluoroscopic images: 6. Signer Name: Javon Brown MD Signed: 01/07/2020 7:56 PM Workstation Name: [id number]
--- NOTE | 2020-01-07 20:02 | Post Anesthesia Evaluation ---
- Post Anesthesia Evaluation Patient Participated: Yes Airway Patent: Yes Stable Respiratory Function: Yes Nausea/Vomiting: No Temp > 96.8F: Yes Pain Manageable: Yes Adequeate Hydration: Yes Anesthesia Complications: No Block Receding Appropriately: Not Applicable Patient on Ventilator: No
--- NOTE | 2020-01-07 21:14 | Operative Report ---
STAFF SURGEON: Dr. Reji Ramos. PREOPERATIVE DIAGNOSIS: Left lower extremity critical limb ischemia. POSTOPERATIVE DIAGNOSIS: Left lower extremity critical limb ischemia. PROCEDURES PERFORMED: 1. Left lower extremity femoral popliteal thrombectomy. 2. Ultrasound retrograde access of the right common femoral artery. 3. A diagnostic aortogram. 4. Left lower extremity diagnostic angiogram with second order catheter placement. 5. Left superficial femoral artery angioplasty and stent placement. COMPLICATIONS: None. ESTIMATED BLOOD LOSS: 100 mL. ANESTHESIA: General. INDICATIONS FOR PROCEDURE: This is a 64-year-old gentleman who recently underwent a remote endarterectomy with angioplasty and stenting of the left SFA for critical limb ischemia, who during the patient's hospital course began developing worsening rest pain in left foot consistent with his preoperative symptoms. The patient had noninvasive imaging, which demonstrated a reocclusion of his SFA. With this, it was felt necessary to take the patient back to the operating room for re-intervention. The patient was explained the risks, benefits and alternatives of procedure, expressed understanding and wished to proceed. DESCRIPTION OF PROCEDURE: After appropriate consent was obtained, the patient was brought back to the operating room and placed on the operating table in supine position. The patient was given appropriate medication for general anesthesia, was intubated without difficulty. Both groins and the left lower extremity were prepped and draped in usual sterile fashion with ChloraPrep. Appropriate preoperative antibiotics were administered. Appropriate timeout was performed indicating correct patient, procedure, and site of procedure. We then began the operation by removing the katya from the left groin incision. The sutures from the subcutaneous tissue were removed. Self-retaining retractors were placed to expose the common, superficial, and profunda femoral arteries. Control was obtained of these arteries with vessel loops in a Tay wrap fashion. Then proceeded to obtain percutaneous access of the right common femoral artery using micropuncture technique under ultrasound guidance, was to obtain access, needle was exchanged for a micropuncture sheath using Seldinger technique. This was then upsized to a 6-Citizen Of [place] sheath over a stiff J wire. The patient was then given unfractionated heparin intravenously. After appropriate timeout elapsed, a vascular clamp was placed on the common and profunda femoral arteries. A transverse arteriotomy was made on the common femoral artery, then a #4 Lane catheter was attempted to be passed distally to the SFA. From here, it was somewhat difficult to navigate the Lane catheter down the SFA and so a small transverse incision was also made on the previously placed patch. Lane was then passed distally for approximately 40 cm and then proceeded to perform a thrombectomy of the femoral popliteal segment on the left, removing a significant amount of thrombus. This was performed multiple times until 2 negative passes were obtained. Adequate back bleeding was obtained. The artery was then flushed with heparinized saline. A vascular clamp was then placed on the SFA then proceeded to close both incisions with interrupted 6-0 Prolene sutures. Once complete, flow was established down the profunda for several beats and then down the SFA. I then proceeded to place a Glidewire into the infrarenal aorta. An Omniflush catheter was placed over the wire. Wire was removed. A diagnostic aortogram was performed, which demonstrated the findings below. We then proceeded to cannulate the left iliac system with a combination of the Omniflush catheter and Glidewire. The Omni flush catheter was advanced into the distal external iliac artery, then a series of diagnostic imaging of the left lower extremity was performed, which demonstrated the findings noted below. I then proceeded to place an Amplatz wire through the Omniflush catheter. The catheter was removed as well as the short 6-Citizen Of [place] sheath and then a 6-Citizen Of [place] x 45 sheath was placed over the wire into the distal external iliac artery. We then proceeded to cannulate the SFA with a Glidewire and vertebral catheter and into the central portion of this vein. The wire was then exchanged for 0184 or V18 wire. The catheter was removed. Then, aortogram was performed noting the origin of the profunda and SFA on the left. We then proceeded to take a 6 mm x 10 cm Viabahn stent and with appropriate overlap to the stent at the proximal portion of the superficial femoral artery from the origin distal. Then, a 6 mm balloon was brought on the field and balloon angioplasty was performed of the overlapped portion of the vein and then proceeded to perform a completion angiogram, which demonstrated the dissection flap had been adequately covered and had adequate flow down the SFA with intact runoff. With this, we then proceeded to remove all the wires and catheters, the long sheath was exchanged for a short 6-Citizen Of [place] sheath over an Amplatz wire and then the wire was removed and then a Mynx closure device was deployed, which deployed adequately. Further digital compression was held at the access site for hemostasis. Once we had hemostasis was obtained, a pressure dressing was placed, then proceeded to look to obtain hemostasis in the left groin wound, which was obtained with hemostatic agents. Once we were satisfied with hemostasis, the groin wound was then closed in multiple layers with 2-0 and 3-0 PDS and the skin was approximated with katya. Appropriate dressing was placed. The patient tolerated the procedure well, had a palpable PT pulse at the end of the procedure, and was sent to recovery after extubation in stable condition. All the sponges, instrument and needle counts were correct at completion of the operation. ANGIOGRAPHIC FINDINGS: The aortoiliac system was patent bilaterally. The right common iliac aneurysm was noted. The left common femoral and profunda femoral arteries were patent with a flow limiting dissection flap noted in the proximal left SFA. The stented portion of the superficial femoral artery was patent. The popliteal artery was patent. There was a complete total occlusion of the proximal anterior tibial artery. The posterior tibial and peroneal artery were patent with 1-vessel runoff to the foot via the posterior tibial artery. JOB# [id number] DESTINEE/MARK
[2020-01-08] MEDS: HYDROmorphone 1 MG/1 ML INJ IV PRN (02:05)
[2020-01-08] MEDS: LACTATED RINGERS 1,000 ML IV SCH (02:13)
[2020-01-08] MEDS: DOCUSATE SODIUM 100 MG CAP PO SCH ×3 (10:30→21:47)
[2020-01-08] MEDS: CILOSTAZOL 100 MG TAB PO SCH ×3 (10:30→21:45)
[2020-01-08] MEDS: PANTOPRAZOLE 40 MG TAB PO SCH (10:30)
[2020-01-08] MEDS: CLOPIDOGREL 75 MG TAB PO SCH (10:30)
[2020-01-08] MEDS: ASPIRIN EC 81 MG TAB PO SCH (10:30)
[2020-01-08] MEDS: oxyCODONE /ACETAMINOPHEN 5-325MG TAB PO PRN ×4 (10:30→21:46)
[2020-01-08 11:01] LABS: Basophils % (Auto) 0.2 % (0.0-1.8); Eosinophils # (Auto) 0.3 K/mm3 (0.0-0.4); Eosinophils % (Auto) 2.9 % (0.0-4.3); Hematocrit 22.5 % (35.5-45.6); Hemoglobin 7.8 gm/dl (11.8-15.2); Lymphocytes # (Auto) 2.5 K/mm3 (1.2-5.4); Lymphocytes % (Auto) 26.5 % (13.4-35.0); Mean Corpuscular HGB Conc 35 % (32-34); Mean Corpuscular Volume 95 fl (84-94); Monocytes # (Auto) 0.8 K/mm3 (0.0-0.8); Monocytes % (Auto) 8.2 % (0.0-7.3); Platelet Count 402 K/mm3 (140-440); Red Blood Count 2.37 M/mm3 (3.65-5.03); Red Cell Distribution Width 13.6 % (13.2-15.2)
--- NOTE | 2020-01-08 11:12 | Progress Note ---
Assessment and Plan 64-year-old male status post left groin remote endarterectomy with Viabahn stent grafting with left common femoral artery patch angioplasty. Needed thrombectomy with extension of stent graft. Given thrombosis of stent, will place patient on Plavix, Aspirin, and Eliquis. Already on Protonix. Can discontinue heparin drip once Eliquis initiated. Discussed with Dr. Ramos. Palpable left posterior tibial pulse. Has baseline mild sensory and motor dysfunction which has not worsened. His left leg pain has improved. Subjective Date of service: 01/08/20 Principal diagnosis: Peripheral vascular disease Interval history: Postoperative day #5. Status post left SFA remote endarterectomy with popliteal artery angioplasty and common femoral artery patch angioplasty. Has reperfusion warmth and mild swelling of the left lower extremity. Palpable PT pulse. Has baseline limited dorsiflexion bilaterally, which is stable and unchanged. Has baseline mild neuropathy of the feet bilaterally, which is stable and unchanged. Has some pain of the left groin incision. His left lower extremity pain has improved, some residual discomfort. Objective - Constitutional Vitals: Vital Signs - 12hr 01/07/20 01/08/20 01/08/20 23:41 00:00 01:10 Temperature 98.1 F Pulse Rate 73 Pulse Rate [ 82 From Monitor] Respiratory 13 23 Rate Blood Pressure 99/53 O2 Sat by Pulse 99 97 Oximetry 01/08/20 01/08/20 01/08/20 01:20 01:30 01:40 Temperature Pulse Rate 69 70 68 Pulse Rate [ From Monitor] Respiratory 16 11 L 14 Rate Blood Pressure 99/53 99/53 99/53 O2 Sat by Pulse 99 100 97 Oximetry 01/08/20 01/08/20 01/08/20 01:50 02:00 02:05 Temperature Pulse Rate 71 70 Pulse Rate [ From Monitor] Respiratory 15 15 19 Rate Blood Pressure 97/52 108/47 O2 Sat by Pulse 98 100 Oximetry 01/08/20 01/08/20 01/08/20 02:10 02:20 02:30 Temperature Pulse Rate 70 68 73 Pulse Rate [ From Monitor] Respiratory 15 13 13 Rate Blood Pressure 105/53 105/53 105/53 O2 Sat by Pulse 100 100 100 Oximetry 01/08/20 01/08/20 01/08/20 02:40 02:50 03:00 Temperature Pulse Rate 68 74 76 Pulse Rate [ From Monitor] Respiratory 14 15 22 Rate Blood Pressure 105/53 105/53 97/50 O2 Sat by Pulse 100 100 100 Oximetry 01/08/20 01/08/20 01/08/20 03:10 03:20 03:30 Temperature Pulse Rate 67 66 74 Pulse Rate [ From Monitor] Respiratory 12 19 19 Rate Blood Pressure 97/50 97/50 97/50 O2 Sat by Pulse 100 100 99 Oximetry 01/08/20 01/08/20 01/08/20 03:40 03:43 03:50 Temperature 98.3 F Pulse Rate 66 72 Pulse Rate [ From Monitor] Respiratory 12 14 Rate Blood Pressure 97/50 97/50 O2 Sat by Pulse 100 100 Oximetry 01/08/20 01/08/20 01/08/20 04:00 04:10 04:20 Temperature Pulse Rate 67 72 68 Pulse Rate [ From Monitor] Respiratory 17 15 14 Rate Blood Pressure 104/53 104/53 104/53 O2 Sat by Pulse 100 100 100 Oximetry 01/08/20 01/08/20 01/08/20 04:30 04:40 04:50 Temperature Pulse Rate 68 72 74 Pulse Rate [ From Monitor] Respiratory 16 13 13 Rate Blood Pressure 104/53 104/53 104/53 O2 Sat by Pulse 100 100 100 Oximetry 01/08/20 01/08/20 01/08/20 05:00 05:10 05:20 Temperature Pulse Rate 68 67 74 Pulse Rate [ From Monitor] Respiratory 15 22 19 Rate Blood Pressure 105/52 105/52 105/52 O2 Sat by Pulse 100 100 100 Oximetry 01/08/20 01/08/20 01/08/20 05:30 05:40 05:50 Temperature Pulse Rate 74 68 73 Pulse Rate [ From Monitor] Respiratory 18 13 14 Rate Blood Pressure 105/52 105/52 105/52 O2 Sat by Pulse 100 100 100 Oximetry 01/08/20 01/08/20 01/08/20 06:00 06:10 06:20 Temperature Pulse Rate 83 71 70 Pulse Rate [ From Monitor] Respiratory 19 21 16 Rate Blood Pressure 107/56 107/56 107/56 O2 Sat by Pulse 99 99 100 Oximetry 01/08/20 01/08/20 01/08/20 06:30 06:40 06:50 Temperature Pulse Rate 71 91 H 85 Pulse Rate [ From Monitor] Respiratory 15 20 19 Rate Blood Pressure 107/56 107/56 107/56 O2 Sat by Pulse 100 99 98 Oximetry 01/08/20 01/08/20 01/08/20 07:00 07:10 07:20 Temperature Pulse Rate 79 77 70 Pulse Rate [ From Monitor] Respiratory 13 19 14 Rate Blood Pressure 111/51 111/51 111/51 O2 Sat by Pulse 100 99 99 Oximetry 01/08/20 01/08/20 01/08/20 07:30 07:40 07:50 Temperature Pulse Rate 81 74 74 Pulse Rate [ From Monitor] Respiratory 18 15 17 Rate Blood Pressure 111/51 111/51 111/51 O2 Sat by Pulse 99 98 99 Oximetry 01/08/20 01/08/20 01/08/20 08:00 08:10 08:20 Temperature 98.1 F Pulse Rate 73 82 75 Pulse Rate [ From Monitor] Respiratory 18 15 16 Rate Blood Pressure 111/50 111/50 111/50 O2 Sat by Pulse 100 99 99 Oximetry 01/08/20 01/08/20 01/08/20 08:30 08:40 08:50 Temperature Pulse Rate 79 77 70 Pulse Rate [ From Monitor] Respiratory 19 21 14 Rate Blood Pressure 111/50 111/50 111/50 O2 Sat by Pulse 98 96 97 Oximetry 01/08/20 01/08/20 01/08/20 09:00 09:10 09:20 Temperature Pulse Rate 80 74 99 H Pulse Rate [ From Monitor] Respiratory 20 18 21 Rate Blood Pressure 105/51 105/51 105/51 O2 Sat by Pulse 96 97 97 Oximetry General appearance: Present: no acute distress - EENT Eyes: EOM intact ENT: hearing intact - Respiratory Respiratory effort: normal Extremities: abnormal (see subjective) - Psychiatric Psychiatric: appropriate mood/affect, cooperative - Labs CBC & Chem 7: 01/08/20 10:43 01/07/20 14:12 Labs: Abnormal lab results 01/07/20 01/07/20 01/07/20 Range/Units 14:12 14:12 14:14 RBC 2.69 L (3.65-5.03) M/mm3 Hgb 8.6 L (11.8-15.2) gm/dl Hct 25.2 L (35.5-45.6) % MCV (84-94) fl MCH (28-32) pg MCHC (32-34) % Miner % (Auto) (0.0-7.3) % Heparin Anti-Xa Level (0.3-0.7) U.I./ml BUN 8 L (9-20) mg/dL Creatinine 0.5 L (0.8-1.5) mg/dL Crossmatch See Detail 01/08/20 01/08/20 Range/Units 05:26 10:43 RBC 2.37 L (3.65-5.03) M/mm3 Hgb 7.8 L (11.8-15.2) gm/dl Hct 22.5 L (35.5-45.6) % MCV 95 H (84-94) fl MCH 33 H (28-32) pg MCHC 35 H (32-34) % Miner % (Auto) 8.2 H (0.0-7.3) % Heparin Anti-Xa Level 0.21 L (0.3-0.7) U.I./ml BUN (9-20) mg/dL Creatinine (0.8-1.5) mg/dL Crossmatch Medications & Allergies - Medications Allergies/Adverse Reactions: Allergies tramadol Allergy (Verified 12/31/19 12:10) N&V Home Medications: Home Medications Medication Instructions Recorded Confirmed Last Taken Type Aspirin [Adult Aspirin] 81 mg PO DAILY 11/29/19 01/03/20 01/02/20 History oxyCODONE /ACETAMINOPHEN [Percocet 1 tab PO Q6HR PRN #24 tablet 12/07/19 01/03/20 12/20/19 Rx 5/325 mg] Active Medications: Generic Name Dose Route Start Last Admin Trade Name Freq PRN Reason Stop Dose Admin Apixaban 2.5 mg 01/08/20 12:00 Eliquis PO Q12HR [facility] Protocol Cilostazol 100 mg 01/06/20 16:00 01/08/20 10:30 Pletal PO 100 mg BID WILIAM Administration Clopidogrel Bisulfate 75 mg 01/04/20 10:00 01/08/20 10:30 Plavix PO 75 mg QDAY WILIAM Administration Docusate Sodium 100 mg 01/04/20 22:00 01/08/20 10:30 Colace PO 100 mg BID WILIAM Administration Hydromorphone HCl 1 mg 01/06/20 15:10 01/08/20 02:05 Dilaudid IV 1 mg Q2H PRN Administration Pain , Severe (7-10) Naloxone HCl 0.1 mg 01/03/20 16:18 Naloxone IV Q2MIN PRN Res Rate </= 8 or 02 SAT < 92% Ondansetron HCl 4 mg 01/03/20 16:18 Zofran IV Q8H PRN Nausea And Vomiting Oxycodone/Acetaminophen 2 tab 01/06/20 15:10 01/08/20 10:30 Percocet 5/325 PO 2 tab Q4H PRN Administration Pain, Moderate (4-6) Pantoprazole Sodium 40 mg 01/07/20 12:00 01/08/20 10:30 Protonix PO 40 mg QDAY WILIAM Administration Senna 17.2 mg 01/04/20 22:00 01/06/20 22:25 Senokot PO 17.2 mg QHS WILIAM Administration
[2020-01-08] MEDS: SENNOSIDES 8.6 MG TAB PO SCH ×2 (11:34→21:45)
[2020-01-08 11:58] LABS: Calcium 8.3 mg/dL (8.4-10.2); Hemolysis Index 6
[2020-01-08] MEDS: APIXABAN 2.5 MG TAB PO SCH ×2 (12:01→21:45)
[2020-01-08 12:53] LABS: BUN/Creatinine Ratio 14; Blood Urea Nitrogen 7 mg/dL (9-20)
[2020-01-09] MEDS: HYDROmorphone 1 MG/1 ML INJ IV PRN (04:29)
[2020-01-09 04:36] LABS: Basophils # (Auto) 0.1 K/mm3 (0.0-0.1); Eosinophils # (Auto) 0.5 K/mm3 (0.0-0.4); Eosinophils % (Auto) 6.8 % (0.0-4.3); Hemoglobin 6.5 gm/dl (11.8-15.2); Lymphocytes # (Auto) 2.1 K/mm3 (1.2-5.4); Lymphocytes % (Auto) 29.4 % (13.4-35.0); Mean Corpuscular HGB Conc 34 % (32-34); Mean Corpuscular Volume 95 fl (84-94); Monocytes # (Auto) 0.6 K/mm3 (0.0-0.8); Monocytes % (Auto) 8.9 % (0.0-7.3); Platelet Count 378 K/mm3 (140-440); Red Cell Distribution Width 13.6 % (13.2-15.2)
[2020-01-09 04:54] LABS: BUN/Creatinine Ratio 13; Blood Urea Nitrogen 8 mg/dL (9-20); Calcium 8.4 mg/dL (8.4-10.2); Hemolysis Index 2
[2020-01-09] MEDS ORDERED: SODIUM CHLORIDE 0.9% 500 ML 500 ML IV ONE (05:28)
[2020-01-09] MEDS: oxyCODONE /ACETAMINOPHEN 5-325MG TAB PO PRN ×4 (06:22→23:15)
[2020-01-09] MEDS: oxyCODONE 5 MG TAB PO SCH (08:10)
[2020-01-09] MEDS ORDERED: SODIUM CHLORIDE 0.9% 500 ML 500 ML IV SCH (09:00)
[2020-01-09] MEDS: DOCUSATE SODIUM 100 MG CAP PO SCH ×2 (09:11→21:49)
[2020-01-09] MEDS: CLOPIDOGREL 75 MG TAB PO SCH (09:11)
[2020-01-09] MEDS: CILOSTAZOL 100 MG TAB PO SCH (09:11)
[2020-01-09] MEDS: PANTOPRAZOLE 40 MG TAB PO SCH (09:11)
[2020-01-09] MEDS: APIXABAN 2.5 MG TAB PO SCH ×2 (09:11→21:49)
[2020-01-09] MEDS: ASPIRIN EC 81 MG TAB PO SCH (09:11)
--- NOTE | 2020-01-09 11:54 | Progress Note ---
Assessment and Plan The patient is a 64-year-old male who is postop day #2 status post re- intervention including thrombectomy of his occluded left SFA and popliteal artery with additional stenting of his SFA. He states he feels much better and has no complaints of pain. He does have acute blood loss anemia and is receiving 1 unit of packed red blood cells. His pain is fairly well controlled. He will continue to work with physical therapy and I anticipate that he will be discharged later this week if his hemoglobin remains stable. Subjective Date of service: 01/09/20 Principal diagnosis: Peripheral vascular disease Interval history: The patient states his left leg feels significantly better than prior to his re- intervention. He states that he still has some numbness in his foot however he does not have any pain. He has no complaints at this time. Objective - Constitutional Vitals: Vital Signs - 12hr 01/08/20 01/09/20 01/09/20 23:52 03:41 07:52 Temperature 97.6 F 97.3 F L Pulse Rate 68 78 Pulse Rate [ 74 From Monitor] Respiratory 18 18 Rate Blood Pressure 111/47 111/56 O2 Sat by Pulse 97 96 98 Oximetry 01/09/20 01/09/20 08:57 10:00 Temperature 98.1 F Pulse Rate 87 67 Pulse Rate [ From Monitor] Respiratory 22 Rate Blood Pressure 98/47 O2 Sat by Pulse 99 Oximetry General appearance: Present: no acute distress - Respiratory Respiratory effort: normal - Cardiovascular Rhythm: regular Extremities: normal temperature (Left leg and foot are warm), normal color, abnormal (Left groin is soft and without hematoma, the dressing is clean dry and intact) Extremity abnormal: edema (Left lower extremity reperfusion edema), pulses diminished (No palpable pedal pulses), other (Normal capillary refill bilaterally in the feet) - Gastrointestinal General gastrointestinal: Present: soft, non-distended - Labs CBC & Chem 7: 01/09/20 03:40 01/09/20 03:40 Labs: Abnormal lab results 01/07/20 01/08/20 01/09/20 Range/Units 14:14 10:43 03:40 RBC 2.00 L (3.65-5.03) M/mm3 Hgb 6.5 L (11.8-15.2) gm/dl Hct 19.0 L* (35.5-45.6) % MCV 95 H (84-94) fl MCH 33 H (28-32) pg Haines % (Auto) 8.9 H (0.0-7.3) % Eos % (Auto) 6.8 H (0.0-4.3) % Eos # 0.5 H (0.0-0.4) K/mm3 BUN 7 L (9-20) mg/dL Creatinine 0.5 L (0.8-1.5) mg/dL Calcium 8.3 L (8.4-10.2) mg/dL Crossmatch See Detail 01/09/20 Range/Units 03:40 RBC (3.65-5.03) M/mm3 Hgb (11.8-15.2) gm/dl Hct (35.5-45.6) % MCV (84-94) fl MCH (28-32) pg Haines % (Auto) (0.0-7.3) % Eos % (Auto) (0.0-4.3) % Eos # (0.0-0.4) K/mm3 BUN 8 L (9-20) mg/dL Creatinine 0.6 L (0.8-1.5) mg/dL Calcium (8.4-10.2) mg/dL Crossmatch Medications & Allergies - Medications Allergies/Adverse Reactions: Allergies tramadol Allergy (Verified 12/31/19 12:10) N&V Home Medications: Home Medications Medication Instructions Recorded Confirmed Last Taken Type Aspirin [Adult Aspirin] 81 mg PO DAILY 11/29/19 01/03/20 01/02/20 History oxyCODONE /ACETAMINOPHEN [Percocet 1 tab PO Q6HR PRN #24 tablet 12/07/19 01/03/20 12/20/19 Rx 5/325 mg] Active Medications: Generic Name Dose Route Start Last Admin Trade Name Freq PRN Reason Stop Dose Admin Apixaban 2.5 mg 01/08/20 12:00 01/09/20 09:11 Eliquis PO 2.5 mg Q12HR WILIAM Administration Protocol Aspirin 81 mg 01/09/20 10:01/09/20 09:11 Halfprin Ec PO 81 mg QDAY WILIAM Administration Clopidogrel Bisulfate 75 mg 01/04/20 10:00 01/09/20 09:11 Plavix PO 75 mg QDAY WILIAM Administration Docusate Sodium 100 mg 01/04/20 22:00 01/09/20 09:11 Colace PO 100 mg BID WILIAM Administration Hydromorphone HCl 1 mg 01/06/20 15:10 01/09/20 04:29 Dilaudid IV 1 mg Q2H PRN Administration Pain , Severe (7-10) Sodium Chloride 500 mls @ 50 mls/hr 01/09/20 09:00 01/09/20 08:45 Nacl 0.9% 500 Ml IV 50 mls/hr DIRECT WILIAM Administration Naloxone HCl 0.1 mg 01/03/20 16:18 Naloxone IV Q2MIN PRN Res Rate </= 8 or 02 SAT < 92% Ondansetron HCl 4 mg 01/03/20 16:18 01/08/20 21:47 Zofran IV 4 mg Q8H PRN Administration Nausea And Vomiting Oxycodone/Acetaminophen 2 tab 01/06/20 15:10 01/09/20 06:22 Percocet 5/325 PO 2 tab Q4H PRN Administration Pain, Moderate (4-6) Pantoprazole Sodium 40 mg 01/07/20 12:00 01/09/20 09:11 Protonix PO 40 mg QDAY WILIAM Administration Senna 17.2 mg 01/04/20 22:00 01/08/20 21:45 Senokot PO 17.2 mg QHS WILIAM Administration
[2020-01-09] MEDS: SENNOSIDES 8.6 MG TAB PO SCH (21:49)
[2020-01-10 04:27] LABS: Basophils # (Auto) 0.1 K/mm3 (0.0-0.1); Basophils % (Auto) 1.2 % (0.0-1.8); Eosinophils # (Auto) 0.5 K/mm3 (0.0-0.4); Eosinophils % (Auto) 6.7 % (0.0-4.3); Hemoglobin 8.3 gm/dl (11.8-15.2); Lymphocytes # (Auto) 2.2 K/mm3 (1.2-5.4); Lymphocytes % (Auto) 32.3 % (13.4-35.0); Mean Corpuscular HGB Conc 34 % (32-34); Mean Corpuscular Volume 93 fl (84-94); Monocytes # (Auto) 0.6 K/mm3 (0.0-0.8); Monocytes % (Auto) 9.2 % (0.0-7.3); Platelet Count 411 K/mm3 (140-440); Red Blood Count 2.58 M/mm3 (3.65-5.03); Red Cell Distribution Width 13.7 % (13.2-15.2)
[2020-01-10 04:42] LABS: BUN/Creatinine Ratio 10; Blood Urea Nitrogen 6 mg/dL (9-20); Calcium 8.2 mg/dL (8.4-10.2); Hemolysis Index 0
--- NOTE | 2020-01-10 09:39 | Progress Note ---
Subjective Date of service: 01/10/20 Principal diagnosis: Peripheral vascular disease Interval history: patient doing well left foot warm and well perfused ambulating without difficulty patient wanting to go home H/H stable after transfusion will d/c home today of note, patient missing personal items after take to the OR, nursing staff made aware Objective - Constitutional Vitals: Vital Signs - 12hr 01/10/20 01/10/20 01/10/20 00:11 03:46 09:15 Temperature 98.9 F 98.0 F Pulse Rate 81 63 Respiratory 18 18 Rate Blood Pressure 124/66 120/52 Blood Pressure 135/63 [Right] O2 Sat by Pulse 98 95 Oximetry - Labs CBC & Chem 7: 01/10/20 03:33 01/10/20 03:33 Labs: Abnormal lab results 01/07/20 01/10/20 01/10/20 Range/Units 14:14 03:33 03:33 RBC 2.58 L (3.65-5.03) M/mm3 Hgb 8.3 L (11.8-15.2) gm/dl Hct 24.0 L (35.5-45.6) % Winkler % (Auto) 9.2 H (0.0-7.3) % Eos % (Auto) 6.7 H (0.0-4.3) % Eos # 0.5 H (0.0-0.4) K/mm3 Potassium 3.5 L (3.6-5.0) mmol/L BUN 6 L (9-20) mg/dL Creatinine 0.6 L (0.8-1.5) mg/dL Calcium 8.2 L (8.4-10.2) mg/dL Crossmatch See Detail Medications & Allergies - Medications Allergies/Adverse Reactions: Allergies tramadol Allergy (Verified 12/31/19 12:10) N&V Home Medications: Home Medications Medication Instructions Recorded Confirmed Last Taken Type Aspirin [Adult Aspirin] 81 mg PO DAILY 11/29/19 01/03/20 01/02/20 History oxyCODONE /ACETAMINOPHEN [Percocet 1 tab PO Q6HR PRN #24 tablet 12/07/19 01/03/20 12/20/19 Rx 5/325 mg] Active Medications: Generic Name Dose Route Start Last Admin Trade Name Freq PRN Reason Stop Dose Admin Apixaban 2.5 mg 01/08/20 12:00 01/09/20 21:49 Eliquis PO 2.5 mg Q12HR WILIAM Administration Protocol Aspirin 81 mg 01/09/20 10:00 01/09/20 09:11 Halfprin Ec PO 81 mg QDAY WILIAM Administration Clopidogrel Bisulfate 75 mg 01/04/20 10:00 01/09/20 09:11 Plavix PO 75 mg QDAY WILIAM Administration Docusate Sodium 100 mg 01/04/20 22:00 01/09/20 21:49 Colace PO 100 mg BID WILIAM Administration Hydromorphone HCl 1 mg 01/06/20 15:10 01/09/20 04:29 Dilaudid IV 1 mg Q2H PRN Administration Pain , Severe (7-10) Sodium Chloride 500 mls @ 50 mls/hr 01/09/20 09:00 01/09/20 08:45 Nacl 0.9% 500 Ml IV 50 mls/hr DIRECT WILIAM Administration Naloxone HCl 0.1 mg 01/03/20 16:18 Naloxone IV Q2MIN PRN Res Rate </= 8 or 02 SAT < 92% Ondansetron HCl 4 mg 01/03/20 16:18 01/08/20 21:47 Zofran IV 4 mg Q8H PRN Administration Nausea And Vomiting Oxycodone/Acetaminophen 2 tab 01/06/20 15:10 01/09/20 23:15 Percocet 5/325 PO 2 tab Q4H PRN Administration Pain, Moderate (4-6) Pantoprazole Sodium 40 mg 01/07/20 12:00 01/09/20 09:11 Protonix PO 40 mg QDAY WILIAM Administration Senna 17.2 mg 01/04/20 22:00 01/09/20 21:49 Senokot PO 17.2 mg QHS WILIAM Administration
[2020-01-10 09:46] VITALS: BP 86/62
--- NOTE | 2020-01-10 09:48 | Short Stay Summary ---
Short Stay Documentation - History H&P: obtained from office Past Medical History: hypertension, hyperlipidemia, PVD Social history: smoking - Allergies and Medications Current Medications: Allergies tramadol Allergy (Verified 12/31/19 12:10) N&V Home Medications Medication Instructions Recorded Confirmed Last Taken Type Aspirin [Adult Aspirin] 81 mg PO DAILY 11/29/19 01/03/20 01/02/20 History oxyCODONE /ACETAMINOPHEN [Percocet 1 tab PO Q6HR PRN #24 tablet 12/07/19 01/03/20 12/20/19 Rx 5/325 mg] Active Medications Apixaban (Eliquis) 2.5 mg PO Q12HR [facility]; Protocol Last Admin: 01/09/20 21:49 Dose: 2.5 mg Documented by: Aspirin (Halfprin Ec) 81 mg PO QDAY [facility] Last Admin: 01/09/20 09:11 Dose: 81 mg Documented by: Clopidogrel Bisulfate (Plavix) 75 mg PO QDAY [facility] Last Admin: 01/09/20 09:11 Dose: 75 mg Documented by: Docusate Sodium (Colace) 100 mg PO BID [facility] Last Admin: 01/09/20 21:49 Dose: 100 mg Documented by: Hydromorphone HCl (Dilaudid) 1 mg IV Q2H PRN PRN Reason: Pain , Severe (7-10) Last Admin: 01/09/20 04:29 Dose: 1 mg Documented by: Sodium Chloride (Nacl 0.9% 500 Ml) 500 mls @ 50 mls/hr IV DIRECT [facility] Last Admin: 01/09/20 08:45 Dose: 50 mls/hr Documented by: Naloxone HCl (Naloxone) 0.1 mg IV Q2MIN PRN PRN Reason: Res Rate </= 8 or 02 SAT < 92% Ondansetron HCl (Zofran) 4 mg IV Q8H PRN PRN Reason: Nausea And Vomiting Last Admin: 01/08/20 21:47 Dose: 4 mg Documented by: Oxycodone/Acetaminophen (Percocet 5/325) 2 tab PO Q4H PRN PRN Reason: Pain, Moderate (4-6) Last Admin: 01/09/20 23:15 Dose: 2 tab Documented by: Pantoprazole Sodium (Protonix) 40 mg PO QDAY [facility] Last Admin: 01/09/20 09:11 Dose: 40 mg Documented by: Shawn (Senokot) 17.2 mg PO QHS [facility] Last Admin: 01/09/20 21:49 Dose: 17.2 mg Documented by: - Physical exam General appearance: no acute distress HEENT: Atraumatic Lungs: Normal air movement Heart: Regular rate Extremities: no ischemia, normal temperature (Left leg and foot are warm), normal color, abnormal (Left groin is soft and without hematoma, the dressing is clean dry and intact) - Hospital course Hospital course: the patient was taken to the operating room on the day of admission for planned left remote endarterectomy and angiogram with intervention. please refer to the operative note concerning details of the procedure. the patient tolerated the procedure well and was admitted to the floor for observation. The patient post- operatively began developing worsening left leg rest pain similar to pre- operative symptoms. An arterial duplex of the left leg demonstrated a re- occlussion of the left SFA. The patient was taken back to the operating room for left leg thrombectomy with angiogram and intervention. Please refer to the operative note concerning details of the procedure. the patient tolerated the procedure and was sent back to the floor for post-op care. The patient did require 1 unit of PRBC during his post-op course with an appropriate response. The rest of the post-op course was unremarkable. At the time of discharge the patient had a well perfused left leg, ambulating well, tolerating regular diet and pain controlled on oral meds. He discharged home in stable condition. - Disposition Condition at discharge: Stable Disposition: [id number] TO HOME OR SELFCARE Short Stay Discharge Plan Follow up with: [facility] [Primary Care Provider] - 7 Days
[2020-01-10] MEDS: oxyCODONE /ACETAMINOPHEN 5-325MG TAB PO PRN (11:10)
[2020-01-10] MEDS: DOCUSATE SODIUM 100 MG CAP PO SCH (11:17)
[2020-01-10] MEDS: CLOPIDOGREL 75 MG TAB PO SCH (11:17)
[2020-01-10] MEDS: ASPIRIN EC 81 MG TAB PO SCH (11:17)
[2020-01-10] MEDS: APIXABAN 2.5 MG TAB PO SCH (11:17)
[2020-01-10] MEDS: PANTOPRAZOLE 40 MG TAB PO SCH (11:21)
[2020-01-10] MEDS: HYDROmorphone 1 MG/1 ML INJ IV PRN (12:15)
== END 2020-01-10 15:30 | disposition home health service (06) | DRG 271 ==
LOC: 4A 16:18 → IMCU 01-07 20:46 → 4A 01-08 18:46
PROVIDERS: ADMIT Surgery Vascular Surgery; ATTEND Surgery Vascular Surgery
PROC: 04CL3ZZ Extirpation of Matter from Left Femoral Artery, Percutaneous Approach (ICD-10-PCS; 2020-01-03)
PROC: 047L3DZ Dilation of Left Femoral Artery with Intraluminal Device, Percutaneous Approach (ICD-10-PCS; 2020-01-03)
PROC: 047N3ZZ Dilation of Left Popliteal Artery, Percutaneous Approach (ICD-10-PCS; 2020-01-03)
PROC: B41G1ZZ Fluoroscopy of Left Lower Extremity Arteries using Low Osmolar Contrast (ICD-10-PCS; 2020-01-03)
PROC: 04CL3ZZ Extirpation of Matter from Left Femoral Artery, Percutaneous Approach (ICD-10-PCS; principal; 2020-01-07)
PROC: 04CN3ZZ Extirpation of Matter from Left Popliteal Artery, Percutaneous Approach (ICD-10-PCS; 2020-01-07)
PROC: 047L3DZ Dilation of Left Femoral Artery with Intraluminal Device, Percutaneous Approach (ICD-10-PCS; 2020-01-07)
PROC: B41D1ZZ Fluoroscopy of Aorta and Bilateral Lower Extremity Arteries using Low Osmolar Contrast (ICD-10-PCS; 2020-01-07)
PROC: B54CZZA Ultrasonography of Left Lower Extremity Veins, Guidance (ICD-10-PCS; 2020-01-07)
PROC: 30233N1 Transfusion of Nonautologous Red Blood Cells into Peripheral Vein, Percutaneous Approach (ICD-10-PCS; 2020-01-09)
DX: I99.8 Other disorder of circulatory system (principal); D62 Acute posthemorrhagic anemia; Z87.891 Personal history of nicotine dependence; K21.9 Gastro-esophageal reflux disease without esophagitis; I10 Essential (primary) hypertension; E78.5 Hyperlipidemia, unspecified; I73.9 Peripheral vascular disease, unspecified
CPT/HCPCS: 36415; 80048; 85014; 85018; 85025; 85027; 85347; 85520; 85610; 85730; 86850; 86900; 86901; 86920; 87641; 93922; 93925; G0378; A4649; C1725; C1768; C1769; C1874; C1885; C1887; C1894; J0330; J0690; J1100; J1170; J1644; J2250; J2370; J2405; J2704; J2710; J2720; J2765; J3010; J7030; J7040; J7050; J7120; P9016; Q9966; U0003-CS